=== PATIENT | female | born 1960 | race Caucasian/White ===

== ENCOUNTER 2019-11-25 09:07 | Outpatient (CLI) | payer OTHER, SELFPAY ==
--- NOTE | 2019-11-25 11:00 | NEURO_ITS ---
Patient Number: [id number] Impression: # Complains of numbness in fingers. # No Carpal Tunnel Syndrome or ulnar neuropathy # Normal needle/EMG exam. # Ulnar to median cross innervation noted bilaterally. # Clinical correlation recommended. Nerve Conduction Studies Anti Sensory Summary Table Stim Site NR Peak (ms) P-T Amp (?V) Site1 Site2 Delta-P (ms) Dist (cm) Maximo (m/s) Left Median Anti Sensory (2-3nd Digit) Wrist 3.3 61.9 Wrist 2-3nd Digit 3.3 14.0 42 Wrist 3.2 63.0 Wrist 2-3nd Digit 3.3 14.0 42 Right Median Anti Sensory (2-3nd Digit) Wrist 3.0 37.4 Wrist 2-3nd Digit 3.0 14.0 47 Wrist 2.9 52.3 Wrist 2-3nd Digit 3.0 14.0 47 Left Radial Anti Sensory (Base 1st Digit) Wrist 2.3 29.3 Wrist Base 1st Digit 2.3 0.0 Right Radial Anti Sensory (Base 1st Digit) Wrist 2.7 23.4 Wrist Base 1st Digit 2.7 0.0 Left Ulnar Anti Sensory (5th Digit) Wrist 2.8 76.9 Wrist 5th Digit 2.8 14.0 50 Right Ulnar Anti Sensory (5th Digit) Wrist 2.6 66.7 Wrist 5th Digit 2.6 14.0 54 Motor Summary Table Stim Site NR Onset (ms) O-P Amp (mV) Site1 Site2 Delta-0 (ms) Dist (cm) Maximo (m/s) Left Median Motor (Abd Poll Brev) Wrist 3.5 7.2 Elbow Wrist 4.9 27.0 55 Elbow 8.4 6.9 Right Median Motor (Abd Poll Brev) Wrist 3.0 4.0 Elbow Wrist 4.8 27.0 56 Elbow 7.8 1.4 Left Ulnar Motor (Abd Dig Minimi) Wrist 2.5 5.3 A Elbow Wrist 4.9 28.0 57 A Elbow 7.4 4.2 Right Ulnar Motor (Abd Dig Minimi) Wrist 2.6 6.6 A Elbow Wrist 4.7 27.0 57 A Elbow 7.3 5.4 B Elbow Wrist 0.6 0.0 F Wave Studies NR F-Lat (ms) L-R F-Lat (ms) Left Median (Mrkrs) (Abd Poll Brev) 27.81 1.02 Right Median (Mrkrs) (Abd Poll Brev) 28.83 1.02 Left Ulnar (Mrkrs) (Abd Dig Min) 27.56 0.64 Right Ulnar (Mrkrs) (Abd Dig Min) 28.20 0.64 EMG Side Muscle Nerve Root Ins Act Fibs Amp Dur Recrt Comment Right 1stDorInt Ulnar C8-T1 Nml Nml Nml Nml Nml Right Ext Indicis Radial (Post Int) C7-8 Nml Nml Nml Nml Nml Right Ext Digitorum Radial (Post Int) C7-8 Nml Nml Nml Nml Nml Right BrachioRad Radial C5-6 Nml Nml Nml Nml Nml Right PronatorTeres Median C6-7 Nml Nml Nml Nml Nml Right Abd Poll Brev Median C8-T1 Nml Nml Nml Nml Nml Left 1stDorInt Ulnar C8-T1 Nml Nml Nml Nml Nml Left Ext Indicis Radial (Post Int) C7-8 Nml Nml Nml Nml Nml Left Ext Digitorum Radial (Post Int) C7-8 Nml Nml Nml Nml Nml Left BrachioRad Radial C5-6 Nml Nml Nml Nml Nml Left PronatorTeres Median C6-7 Nml Nml Nml Nml Nml Left Abd Poll Brev Median C8-T1 Nml Nml Nml Nml Nml MTDD
== END 2019-11-25 09:08 | disposition home or self-care (01) ==
LOC: ANHNEURO 09:11
PROVIDERS: PCP Orthopaedic Surgery; Visit Provider Orthopaedic Surgery
DX: M54.2 Cervicalgia (principal)
CPT/HCPCS: 95886; 95911

== ENCOUNTER 2023-07-02 14:50 | Outpatient (CLI) | payer OTHER, SELFPAY ==
--- NOTE | 2023-07-06 20:49 | P.PCNPFT_ITS ---
PFT Procedure Performed PFT Procedure Performed Spirometry with Pre/Post Bronchodilator Plethysmography (Lung Vol) Diffusing Cap (DLCO) Flow Vol Loop PFT Interpretation DOS: 07/02/2023 REQUESTING: Abel Lorenzo APRN REASON FOR TESTING: emphysema PULMONARY FUNCTION TESTS As of July 05, 2022, the [employer] reference equations are used in interpretation of spirometry, lung volumes and diffusing capacity. Race and ethnicity are not included as variables in the interpretation strategy. Results are reliable and reproducible. Spirometry: Pre-bronchodilator FEV1 is 0.93 L, 40% predicted, severely reduced. Pre bronchodilator FVC is 2.17 L, 75% predicted, mildly reduced. The FEV1/FVC r atio is 43%, reduced, consistent with airflow obstruction. After bronchodilator administration, there is a 9% increase in the FEV1, 1.01 L, 44% predicted. There is a 2% increase in the FVC, 2.21 L, 76%, low end of normal. The FEV1/FVC ratio is 46%, reduced. These are non statistically significant increases after bronchodilator. Lung volumes: Total lung capacity is 5.32 L, 113%, normal. FRC is 3.77 L, 142% predicted, mildly elevated. Residual volume is 3.15 L, 166%, moderately elevated. RV/TLC is 59%, increased, consistent with air trapping. Airway resistance is 8.23, 572%, increased. Diffusion: DLCO 7.7, 37%, severely reduced. DLCO/VA is 2.13, 47%, severely reduced. Flow volume loop: Severe coving of the expiratory limb consistent with airflow obstruction. IMPRESSION: Severe obstructive ventilatory impairment without response to bronchodilator, moderate air trapping, severe diffusion impairment. Lack of response to bronchodilator should not preclude use of clinically indicated. No prior studies for comparison. Luz Maria Sheriff MD
--- NOTE | 2023-07-06 20:54 | WPDSIXMINUTE ---
Six Minute Walk Procedure Procedure Performed Pulmonary Stress Test (6 min walk) Six Minute Walk Six Minute Walk: DATE OF SERVICE: 07/02/2023 REQUESTING: Abel Lorenzo APRN REASON FOR TESTING: Emphysema SIX MINUTE WALK This test was conducted per ATS guidelines. The initial saturation was 93%, and initial heart rate was 100. The patient walked without stopping, completing 1100 ft, 335 meters, normal for age. The saturation at the end of testing was 92%, and the heart rate was 114 beats per minute. IMPRESSION: This is a normal study. The patient did not require supplemental oxygen with exertion. The patient was tachycardic throughout the study which is not normal. Highest pulse was 123 beats per minute. Luz Maria Sheriff MD
== END 2023-07-02 14:51 | disposition home or self-care (01) ==
PROVIDERS: PCP Internal Medicine; Visit Provider Nurse Practitioner Family
DX: R06.09 Other forms of dyspnea (principal); J43.9 Emphysema, unspecified
CPT/HCPCS: 94060; 94618; 94726; 94729

== ENCOUNTER 2024-02-27 12:45 | Outpatient (CLI) | payer OTHER, SELFPAY ==
[2024-02-27 13:00] VITALS: PULSE 83; O2SAT 96
[2024-02-27 13:05] VITALS: PULSE 104; O2SAT 96
[2024-02-27 13:15] VITALS: PULSE 88; O2SAT 96
--- NOTE | 2024-02-27 13:45 | HOMEO2EVAL ---
Evaluation was performed at [facility] Home Oxygen Evaluation RC: Home Oxygen (O2) Evaluation Start: 02/27/24 13:43 Freq: Status: Active Protocol: RPE Activity Type Activity Date Activity User E-sign Co-sign Detail Recorded Client Recorded Date Recorded By Document 02/27/24 13:00 [place] [email or web address] 02/27/24 13:45 [place] Document 02/27/24 13:05 [place] [email or web address] 02/27/24 13:45 [place] Document 02/27/24 13:15 [place] [email or web address] 02/27/24 13:45 [place] 02/27/24 02/27/24 02/27/24 13:00 13:05 13:15 Home O2 Evaluation [Oxygen] -Test Phase Resting Exercise Resting -Oxygen Delivery Room Air Room Air Room Air [Pulse Oximetry] -Pulse Oximetry (90-100 %) 96 96 96 [Pulse Rate] -Pulse Rate (60-100 beats/min) 83 104 H 88 [Evaluation] -Activity Tolerance Excellent [Exercise] -Ambulation Distance (feet) 900 -Ambulation Distance (meters) 274.30 [Comments] -Home Oxygen Evaluation Comments Pt walked 900 feet in 6 minutes on room air [Charges] -Evaluation Charges O2 Evaluation by Pulmonary
== END 2024-02-27 12:46 | disposition home or self-care (01) ==
LOC: ANHPFT 12:47
PROVIDERS: PCP Internal Medicine; Visit Provider Physician Assistant
DX: J44.9 Chronic obstructive pulmonary disease, unspecified (principal)
CPT/HCPCS: 94618

== ENCOUNTER 2024-07-16 20:03 | Emergency (ER) | payer OTHER, SELFPAY ==
[2024-07-16] VITALS (34 sets, daily range): BP systolic 95–130; BP diastolic 69–88; PULSE 107–137; RESP 14–28; TEMP 36.4; O2SAT 91–98
--- NOTE | ~2024-07-16 | XR_ITS ---
XR chest 1V portable Ordering provider: Gaetano De Santiago MD History: 64 years Female with . SOB . Comparison: None. FINDINGS: MEDIASTINUM: The cardiac silhouette is not enlarged. LUNGS: No infiltrates, effusions or pneumothorax. 9 mm opacity Seen in the right upper lobe laterally is seen which may indicate a nodule or granuloma. 3 months follow-up advised. OTHER: No free air under the diaphragm. IMPRESSION: No acute cardiopulmonary pathology. Possible nodule or granuloma in the right upper lobe. 3 months follow-up advised. Reviewed, dictated and finalized at location A. IMPRESSION: No acute cardiopulmonary pathology. Possible nodule or granuloma in the right upper lobe. 3 months follow-up advismatty zhang
--- NOTE | 2024-07-16 20:17 | ECG_ITS ---
Test Date: 2024-07-16 20:15:04 Measurements Intervals [place] Rate: 131 P: 67 RI: 116 QRS: 11 QRSD: 82 T: 80 QT: 380 QTc: 561 Interpretive Statements SINUS TACHYCARDIA WITH SHORT RI INTERVAL LOW QRS VOLTAGE - DIFFUSE LEADS BORDERLINE ST-T WAVE ABNORMALITY- LAT/HIGH LAT LEADS BASELINE ARTIFACT- I, III, AVR, AVL,A VF, V1-V6 ABNORMAL ECG No previous ECG available for comparison Electronically Signed On 07-17-2024 08:19:07 CDT by James Carmona D.O.
--- OUTSIDE RECORDS SUMMARY | 2024-07-16 20:23 | XMS_ITS | CONTINUITY OF CARE DOCUMENT ---
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 Name Role Phone Madelin Celis MD Unavailable RHETT MARTINEZ MD Unavailable [phone] RHETT MARTINEZ MD Unavailable PROBLEMS Condition Status Date Provider Notes Cardiology examination active Madelin molina MD Palpitations active Madelin Celis MD Shortness of breath active Madelin Celis MD COPD active Madelin Celis MD Snoring active Madelin Celis MD Aortic regurgitation active Madelin stapleton MD PAD - RLE with ulcer active Madelin stapleton MD Tobacco abuse- hx of active Madelin stapleton MD Leg pain, bilateral active Madelin Celis MD Overweight active Madelin Celis MD Chest pain-type to be determined active Tommy Celis MD SARS-associated coronavirus active Madelin Celis MD Cardiology examination active Madelin molina MD Pericardial effusion active Madelin stapleton MD Mitral regurgitation active Madelin stapleton MD FATIGUE active Madelin Celis MD ENCOUNTERS Date Type Provider Location Encounter Diag nosis 7 - 1 In-person encounter Office Visit Madelin Celis MD [facility] FATIGUE 9 - 1 In-person encounter Office Visit Madelin Celis MD [facility] Mitral regurgitation 8 - 0 In-person encounter Office Visit Madelin Celis MD [facility] Pericardial effusion 8 - 1 In-person encounter Office Visit Madelin Celis MD [facility] Cardiology examination 9 - 9 In-person encounter Office Visit Madelin Celis MD [facility] 7 - 7 In-person encounter Office Visit Madelin Celis MD [facility] Office SARS-associated coronavirus 4 - 9 In-person encounter Office Visit Madelin Celsi MD [facility] 7 - 7 In-person encounter Office Visit Madelin Celis MD [facility] 1 - 7 In-person encounter Office Visit Madelin Celis MD [facility] 5 - 9 In-person encounter Office Visit Madelin Celis MD [facility] Chest pain-type to be determined 2 - 3 In-person encounter Office Visit Madelin Celis MD [facility] Leg pain, bilateralOverweight 9 - 3 In-person encounter Office Visit Madelin Celis MD [facility] 7 - 7 In-person encounter Office Visit Quentin Mims MD [facility] 2 - 1 In-person encounter Office Visit Madelin Celis MD [facility] Aortic regurgitationPAD - RLE with ulcerTobacco abuse- hx of 3 - 3 In-person encounter Office Visit Madelin Celis MD [facility] Cardiology examinationPalpitationsShortness of breathCOPDSnoring VITAL SIGNS Date Observation Value Provider Body Mass Index (Ratio) 23.99 kg/m2 Inna Celis MD pulse rate 95 /min Charlene Lopez RN oxygen saturation, oximetry 97 % Charlene Lopez RN weight E&M 127 [lb_av] Charlene Lopez RN blood pressure, diastolic 74 mm[Hg] Brad sutherland John RN blood pressure, systolic 91 mm[Hg] Charlene John MORROW Body Mass Index (Ratio) 23.80 kg/m2 Inna Celis MD blood pressure, diastolic 66 mm[Hg] Lois sharri Lopez blood pressure, systolic 100 mm[Hg] Kate pieter Lopez weight E&M 126 [lb_av] Suhapieter Lopez blood pressure, cuff size large An sharri Lopez height E&M 61 [in_i] Suha John Body Mass Index (Ratio) 23.62 kg/m2 Inna Celis MD blood pressure, diastolic 76 mm[Hg] Lois sharri Lopez blood pressure, systolic 90 mm[Hg] Any pieter Lopez oxygen saturation, oximetry 96 % Suha Lopez pulse rate 113 /min Suhapieter Lopez weight E&M 125 [lb_av] Suhapieter Lopez height E&M 61 [in_i] Suha John blood pressure, cuff size large An sharri Lopez Body Mass Index (Ratio) 22.67 kg/m2 Inna Celis MD blood pressure, cuff size regular Ri john Montes blood pressure, diastolic 86 mm[Hg] Ri john Montes blood pressure, systolic 140 mm[Hg] Clint parul Montes oxygen saturation, oximetry 97 % Virgie Montes respiratory rate E&M 16 /min Allison Montes pulse rate 70 /min Virgie monteiro weight E&M 120 [lb_av] Virgie monteiro height E&M 61 [in_i] Virgie monteiro Body Mass Index (Ratio) 23.99 kg/m2 Tung Mosleyn blood pressure, cuff size regular Sandra lopez Quiros blood pressure, diastolic 76 mm[Hg] Sandra lopez [place] blood pressure, systolic 125 mm[Hg] Luis Carlos teran [place] oxygen saturation, oximetry 97 % Nette Quiros pulse rate 79 /min Nette Mejia michaelle respiratory rate E&M 16 /min Yahaira starr Quiros weight E&M 127 [lb_av] Nette oRberto braswell height E&M 61 [in_i] Nette Roberto braswell Body Mass Index (Ratio) 23.99 kg/m2 Inna Celsi MD blood pressure, diastolic 62 mm[Hg] Li nkLogjoy blood pressure, systolic 98 mm[Hg] Jamila kLogjoy blood pressure, cuff size large Tr teodoro Jensen blood pressure, diastolic 62 mm[Hg] Tr teodoro Jensen blood pressure, systolic 98 mm[Hg] Try dennys Jensen oxygen saturation, oximetry 99 % Annalisa Jensen respiratory rate E&M 18 /min Trynett Jensen pulse rate 101 /min Trydennys Jensen weight E&M 127 [lb_av] Trydennys Jensen height E&M 61 [in_i] Trynett Jensen Body Mass Index (Ratio) 24.18 kg/m2 Inna Celis MD oxygen saturation, oximetry 94 % Chastaneta Esteban blood pressure, diastolic 76 mm[Hg] Ch astity Carlito blood pressure, systolic 114 mm[Hg] Irma stity Carlito weight E&M 128 [lb_av] Chastity Carlito pulse rate 95 /min Chastity Carlito respiratory rate E&M 16 /min Chastit y Carlito height E&M 61 [in_i] Chastity Carlito Body Mass Index (Ratio) 24.56 kg/m2 Inna Celis MD blood pressure, diastolic 87 mm[Hg] Fe rob Tam blood pressure, systolic 140 mm[Hg] Fel icia Tam pulse rate 92 /min Natalia Tam oxygen saturation, oximetry 97 % Natalia Tam respiratory rate E&M 16 /min Natalia Tam temperature E&M 97.2 [degF] Natalia Tam weight E&M 130 [lb_av] Natalia Tam height E&M 61 [in_i] Natalia Tam Body Mass Index (Ratio) 27.77 kg/m2 Inna Celis MD blood pressure, cuff size regular Ke rri Gruenenfelder blood pressure, diastolic 90 mm[Hg] Ke rri Gruenenfelder blood pressure, systolic 142 mm[Hg] Belle ri Manavnenfmasooder oxygen saturation, oximetry 96 % Shani Gruenenfelder respiratory rate E&M 16 /min Shani G ruenenfelder pulse rate 103 /min Shani Gruenenfe lder weight E&M 147 [lb_av] Shani Gruenenfe lder height E&M 61 [in_i] Shani Gruenenfe lder Body Mass Index (Ratio) 27.02 kg/m2 Inna Celis MD blood pressure, diastolic 84 mm[Hg] To [facility] blood pressure, systolic 117 mm[Hg] [facility] oxygen saturation, oximetry 97 % [facility] respiratory rate E&M 16 /min [facility] pulse rate 85 /min [facility] weight E&M 143 [lb_av] [facility] height E&M 61 [in_i] [facility] Body Mass Index (Ratio) 26.64 kg/m2 Inna Celis MD blood pressure, diastolic 94 mm[Hg] [facility], systolic 132 mm[Hg] [facility] oxygen saturation, oximetry 96 % [facility] respiratory rate E&M 16 /min [facility] pulse rate 102 /min [facility] weight E&M 141 [lb_av] [facility] height E&M 61 [in_i] [facility] temperature site temporal [facility] temperature E&M 97.3 [degF] Sheryl Tanks rhianna Body Mass Index (Ratio) 25.69 kg/m2 Christopher Chavarria blood pressure, cuff size regular Cy ntgeorge Robertson blood pressure, diastolic 70 mm[Hg] Cy ntgeorge Robertson blood pressure, systolic 116 mm[Hg] Renetta jie Robertson oxygen saturation, oximetry 97 % Mehnaz Robertson pulse rate 100 /min Mehnaz Campbel l respiratory rate E&M 16 /min Mehnaz Robertson weight E&M 136 [lb_av] Mehnaz Campbel l height E&M 61 [in_i] Mehnaz Campbel l Body Mass Index (Ratio) 26.64 kg/m2 Nacho Mims MD blood pressure, cuff size regular Cy nthia Robertson blood pressure, diastolic 70 mm[Hg] Luís Robertson blood pressure, systolic 110 mm[Hg] Renetta Robertson oxygen saturation, oximetry 97 % Mehnaz Robertson respiratory rate E&M 16 /min Mehnaz Robertson pulse rate 110 /min Mehnaz weldon weight E&M 141 [lb_av] Mehnaz weldon height E&M 61 [in_i] Mehnaz weldon Body Mass Index (Ratio) 25.88 kg/m2 Inna Celis MD blood pressure, cuff size regular Cy michelle Robertson blood pressure, diastolic 80 mm[Hg] Luís Robertson blood pressure, systolic 124 mm[Hg] Renetta Robertson oxygen saturation, oximetry 94 % Mehnaz Robertson respiratory rate E&M 16 /min Mehnaz Robertson pulse rate 103 /min Mehnaz weldon weight E&M 137 [lb_av] Mehnaz weldon height E&M 61 [in_i] Mehnaz weldon Body Mass Index (Ratio) 25.51 kg/m2 Inna Celis MD blood pressure, resting No Celio tity Carlito oxygen saturation, oximetry 98 % Irmastity Carlito height E&M 61 [in_i] Chastity Carlito pulse rate 91 /min Chastity Carlito blood pressure, diastolic 78 mm[Hg] Ch astity Carlito blood pressure, systolic 120 mm[Hg] Irma stity Carlito respiratory rate E&M 16 /min Chastit y Carlito weight E&M 135 [lb_av] Chastity Carlito ALLERGIES No Known Drug Allergies HISTORY OF MEDICATION USE Medication Status Instructions Dates Provider Indications Com ments Lipitor 20 mg tablet active TAKE 1 TABLET EVERY DAY Madelin Celis MD nicotine 7 mg/24 hr patch 24 hour active USE DIRECTED, ONE DAILY Britta Pérez Nicoderm CQ 7 mg/24 hr patch 24 hour completed Apply 1 patch to skin every morning Use as directed, one daily - Madelin Celis MD metoprolol succinate 25 mg tablet extended release 24 hr active TAKE 1 TABLET BY MOUTH TWICE A DAY Nighat Cortez Scarm CQ 7 mg/24 hr patch 24 hour completed Use as directed, one daily - Madelin Celis MD nicotine 21 mg/24 hr patch 24 hour active Apply 1 patch once a day as directed Shani Ragland #28, 28 days supply, Prescribed by RHETT MARTINEZ, Filled 01/03/2020 Symbicort 80-4.5 mcg/actuation HFA aerosol inhaler active Inhale 2 puff by mouth twice a day Shani Ragland #10.2, 30 days supply, Prescribed by RHETT MARTINEZ, Filled 01/13/2020 topiramate 25 mg tablet completed Take 1 tablet by mouth once a day - Mavis Ventimiglia [employer]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, 30 days supply, Prescribed by RHETT MARTINEZ, Filled 01/17/2020 omeprazole 40 mg capsule,delayed release(DR/EC) active Take 1 capsule by mouth every morning Shani Ragland #30, 30 days supply, Prescribed by RHETT MARTINEZ, Filled 01/17/2020 hydroxyzine HCl 25 mg tablet active Take 1 tablet by mouth twice a day as needed Shani Ragland #60, 30 days supply, Prescribed by RHETT MARTINEZ, Filled 01/17/2020 lutein 20 mg capsule active 1 tablet by mouth once a day Irmastaneta Esteban cyclobenzaprine 5 mg tablet active tablet by mouth as needed Chastity Carlito Ventolin HFA 90 mcg/actuation HFA aerosol inhaler active as needed Chastity Carlito #18, 25 days supply, Prescribed by AVEL WOODS, Filled 04/14/2018 olanzapine 10 mg tablet active 1 tablet by mouth twice a day Chastity Carlito #60, 30 days supply, Prescribed by STEFANO VARNER, Filled 06/24/2018 lithium carbonate 300 mg capsule active 1 tablet by mouth twice a day Chastity Carlito #60, 30 days supply, Prescribed by STEFANO VARNER, Filled 06/24/2018 QUETIAPINE FUMARATE 100 MG ORAL TABLET completed one tab once daily - Shani Emcasier #30, 30 days supply, Prescribed by STEFANO VARNER, Filled 06/24/2018 fluticasone propion-salmetero l active 1 puff twice a day Chastity Carlito #1, 30 days supply, Prescribed by STEVE CALLAWAY, Filled 06/27/2018 SOCIAL HISTORY Date Observation Value Provider drug use no Madelin stapleton MD alcohol use no Madelin stapleton MD smoking/tobacco cess ation, patient education and counseling yes Madelin Celis MD number of years as a smoker 41 a Madelin Celis MD smoking history, tot al pack/day 7 Madelin Celis MD cigarette use yes Madelin saxena MD smoking status Current every da y smoker Madelin Celis MD drug use no Suha Lopez alcohol use no Suha Lopez smoking/tobacco cess ation, patient education and counseling yes Suha Lopez number of years as a smoker 41 a Suha Lopez smoking history, tot al pack/day 7 Suhapieter Lopez cigarette use yes Suha Lopez smoking status Current every da y smoker Suha Lopez social history E&M S moking History: P atjason currently smokes every day. P atjason has been counseled to quit. 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 use no Mavis Ventimig patria [employer]ING TEACHER smoking/tobacco cess ation, patient education and counseling yes Virgie Montes number of years as a smoker 41 a Virgie Montes smoking history, tot al pack/day 7 Virgie Montes cigarette use yes Virgie Gray jeaneth smoking status Current every da y smoker Virgie Montes social history reviewed E&M revi ewed - no changes required Shaye Gleason NP smoking/tobacco cess ation, patient education and counseling yes Nette Duarteand number of years as a smoker 41 a Nette Quiros smoking history, tot al pack/day 7 Nette Ishaan cigarette use yes Nette Ramo robles smoking status Current every da y smoker Nette Duarteand social history E&M S moking History: P atient currently smokes every day. Madelin Celis MD social history reviewed E&M revi ewed - no changes required Madelin Celis MD smoking history, tot al pack/day 7 Annalisa Jensen cigarette use yes Annalisa dacosta smoking status Current every da y smoker Annalisa Jensen smoking/tobacco cess ation, patient education and counseling yes Maddy Esteban number of years as a smoker 41 a Maddy Esteban smoking history, tot al pack/day 1 Maddy Esteban cigarette use yes Maddy Esteban smoking status Current every da y smoker Maddy Esteban social history E&M S moking History: P atient currently smokes every day. P atient has been counseled to quit. Madelin Celis MD social history reviewed E&M revi ewed - no changes required Madelin Celis MD smoking/tobacco cess ation, patient education and counseling yes Natalia Tam number of years as a smoker 41 a Natalia Tam smoking history, tot al pack/day 1 Natalia Tam cigarette use yes Natalia Tam smoking status Current every da y smoker Natalia Tam social history E&M S moking History: P atient currently smokes every day. P atient has been counseled to quit. Madelin Celis MD social history reviewed E&M revi ewed - no changes required Madelin Celis MD smoking/tobacco cess ation, patient education and counseling yes Shani Ragland number of years as a smoker 41 a Shani Ellyn smoking history, tot al pack/day 1 Shani Ragland cigarette use yes Shani jose smoking status Current every da y smoker Shani Ragland smoking/tobacco cess ation, patient education and counseling yes Madelin Celis MD smoking status Current every da y smoker Madelin Celis MD social history reviewed E&M revi ewed - no changes required Madelin Celis MD social history E&M S moking History: P atient currently smokes every day. P atient has been counseled to quit. Madelin Celis MD number [facility] a [facility]day 1 [facility] cigarette use yes [facility] social history E&M S moking History: P atient currently smokes every day. P atient has been counseled to quit. Ventura Suárez social history reviewed E&M revi ewed - no changes required Ventura Kamini smoking history, tot al pack/day 1 [facility] smoking/tobacco cess ation, patient education and counseling yes [facility] number of years as a smoker 41 a [facility] cigarette use yes [facility] smoking status Current every da y smoker [facility] social history E&M S moking History: P atient currently smokes every day. P atient has been counseled to quit. Madelin Celis MD social history reviewed E&M revi ewed - no changes required Madelin Celis MD number of grandchildren Madelin Celis MD smoking/tobacco cess ation, patient education and counseling yes Mehnaz Robertson number of years as a smoker 41 a Mehnaz Robertson cigarette use yes Mehnaz harper smoking status Current every da y smoker Mehnaz Robertson number of grandchildren Quentin Mims MD U devorah Mims MD social history E&M S moking History: P atient currently smokes every day. P atient has been counseled to quit. Quentin Mims MD social history reviewed E&M revi ewed - no changes required Quentin Mims MD smoking/tobacco cess ation, patient education and counseling yes Mehnaz Robertson number of years as a smoker 41 a Mehnaz Robertson cigarette use yes Mehnaz harper smoking status Current every da y smoker Mehnaz Robertson social history E&M S moking History: P ramin currently smokes every day. P atjason has been counseled to quit. Madelin Celis MD social history reviewed E&M revi ewed - no changes required Madelin Celis MD smoking/tobacco cess ation, patient education and counseling yes Mehnaz Robertson number of years as a smoker 41 a Mehnaz Robertson cigarette use yes Mehnaz Benitez meredith smoking status Current every da y smoker Mehnaz Marcelo number of grandchildren Madelin Celis MD smoking/tobacco cess ation, patient education and counseling yes Madelin Celis MD social history reviewed E&M revi ewed - no changes required Madelin Celis MD social history E&M S moking History: P ramin currently smokes every day. P ramin has been counseled to quit. Madelin Celis MD number of years as a smoker 41 a Maddy Esteban cigarette use yes Maddy Esteban smoking status Current every da y smoker Maddy Esteban FAMILY HISTORY Family Member Condition First Degree Blood Relative No Known Fam sachi History INSURANCE PROVIDERS Payer name Policy type / Coverage type [place] red libertarian ID HERNANDEZ MEDICAID Medicaid [id number] ADVANCE DIRECTIVES Name Date DISCUSSED - NO DECISION MADE TREATMENT PLAN Date Name Performer [id number],S, E mphysema noted on CT. Madelin Celis MD [id number],C, H as healed up. S ensilase 01/20/19: M ildly abnormal PVR's b/l with adequate perfusion for wound healing November 23, 2022 H as healed. Madelin Celis MD [id number],C,S mall pericardial effusion noted on CT scan, will get an echo. Madelin Celis MD [id number],C, R estarted smoking. Madelin Celis MD [id number],C, t race on last echo. Will monitor Madelin Celis MD [id number],S,w ill plan low dose screening CT of the lungs O rders: 9 9214 MOD 30-39min (CPT-03539) L ow Dose Lung CT (CPT-G0297) C ounseling LDCT (CPT-G0296) [facility] [id number],S,trace on last echo. Will monitor [facility] [id number],C, H as healed up. S ensilase 01/20/19: M ildly abnormal PVR's b/l with adequate perfusion for wound healing [facility] [id number],C,with negative sleep studies [facility] [id number],S,c ontrolled. Continue BB. Encouraged stress reduction, exercise and avoidance of caffeine H er updated medication list for this problem includes: Toprol Xl 25 Mg Tablet Extended Release 24 Hr (Metoprolol succinate) ..... Take 1 tablet by mouth twice a [facility] [id number],C,T race MR, Trace AR and Trace TR noted on echo 01/2021 Shaye Packvane [id number],C,no complaints Shaye Gleason [id number],C,N o further complaints T issa monitor was SR Her updated medication list for this problem includes: Toprol Xl 25 Mg Tablet Extended Release 24 Hr (Metoprolol succinate) ..... Take 1 tablet by mouth twice a day Shayeryan Gleason [id number],C,4 cigarettes a day. W ill arrange for low dose CT chest Shayeryan Gleason [id number],C, H as healed up. S ensilase 01/20/19: M ildly abnormal PVR's b/l with adequate perfusion for wound healing Shaye Gleason ENROLLMENT COORDINATOR [id number],C,W as on weight loss medication, has lost 20+lbs and stopped medication Shaye Gleason ENROLLMENT COORDINATOR [id number],C, R elated to continued cigarette and marijuana use. April 14, 2021 h as cut back on marijuana use Madelin Celis MD [id number],B, Madelin robison MD [id number],C,Tele monitor was SR Madelin Celis MD [id number],C, E cho 07/02/2019 CONCLUSIONS: 1 . Technically difficult study, limited views secondary to poor acoustic windows; breast implants. Interpretation is based on a vailable limited views. Normal left ventricular systolic function. Normal left ventricular size. Normal left ventricular wall t hickness. There is E to A wave reversal consistent with impaired LV relaxation. E/E': 7.6. Left ventricular ejection fraction is m easured at 65 %. 2 . Normal right ventricular size. Normal right ventricular systolic function. 3 . Normal appearing mitral valve leaflets. There is trace physiologic mitral valve regurgitation. 4 . Mild aortic valve regurgitation. 5 . There is trace physiologic tricuspid valve regurgitation. VALVULAR FUNCTION IMPROVED, LESS REGURG NOTED April 14, 2021 E cho was done C ONCLUSIONS: 1 . Normal left ventricular systolic function. Normal left ventricular size. Normal left ventricular wall thickness. Normal left v entricular diastolic function. E/E': 7.7. Left ventricular ejection fraction is measured at 60 %. 2 . Normal right ventricular size. Normal right ventricular systolic function. 3. There is trace physiologic mitral valve regurgitation. 4 . There is trace physiologic aortic valve regurgitation. 5 . There is trace physiologic tricuspid valve regurgitation E lectronically signed by Madelin Celis MD on 01/24/2021 at 1:41 PM Madelin Celis MD [id number],C, H ome sleep study negative for LEVI. Madelin Celis MD [id number],C, H as healed up. S ensilase 01/20/19: M ildly abnormal PVR's b/l with adequate perfusion for wound healing Madelin Celis MD [id number],C,Vaccinated J& J Madelin Celis MD [id number],C, T akes inhaler N egative LEVI workup. Pulmonary Function Diagnosis: M oderately severe Obstructive Airways Disease M oderately severe Diffusion Defect. U ses inhaler. May be exposed to second hand smoke. Needs to see engineering drafter. Madelin Celis MD [id number],C,1 /2 ppday T he Patient was reencouraged to stop smoking. Madelin Celis MD [id number],C, a dd toprol xl 25 mg daily still noteices will get tele montior and increase to 50mg daily if tolerated Her updated medication list for this problem includes: Toprol Xl 25 Mg Oral Tablet Extended Release 24 Hour (Metoprolol succinate) ..... One tab daily Madelin Celis MD [id number],C, R elated to continued cigarette and marijuana use. Madelin Celis MD [id number],C, H aving episode of SSCP, unclear, doubt ACS. No EKG changes noted. Prior stress w/out ischemia. Normal LV function. Recommend follow up in 2 weeks. If she has recurrent Sx, will recommend cath. S bob 1 . Normal myocardial perfusion imaging after vasodilator stress with Regadenoson. 2 . Normal left ventricular systolic function with a calculated ejection fraction of 51%. 3 . No obvious significant scintigraphic evidence of myocardial ischemia or scar. 4 . Breast attenuation reviewed. No significant impact on images noted. . ................................................... ...............Madelin Celis MD August 20, 2018 5:52 PM Madelin Celis MD [id number],Gautam Mckeon 07/02/2019 CONCLUSIONS: 1 . Technically difficult study, limited views secondary to poor acoustic windows; breast implants. Interpretation is based on a vailable limited views. Normal left ventricular systolic function. Normal left ventricular size. Normal left ventricular wall t hickness. There is E to A wave reversal consistent with impaired LV relaxation. E/E': 7.6. Left ventricular ejection fraction is m easured at 65 %. 2 . Normal right ventricular size. Normal right ventricular systolic function. 3 . Normal appearing mitral valve leaflets. There is trace physiologic mitral valve regurgitation. 4 . Mild aortic valve regurgitation. 5 . There is trace physiologic tricuspid valve regurgitation. VALVULAR FUNCTION IMPROVED, LESS REGURG NOTED Madelin Celis MD Cardiology: L ikely arthritic from her description w ill get arterial study done to eval legs for PAD Maedlin Celis MD Cardiology: C ONCLUSIONS: 1 . Technically difficult study, limited views secondary to poor acoustic windows and breast implants. Interpretation is based o n available limited views. Normal left ventricular systolic function. Normal left ventricular size. Normal left ventricular wall t hickness. There is E to A wave reversal consistent with impaired LV relaxation. E/E': 8.0 Left ventricular ejection fraction is m easured at 60 %. 2 . Normal right ventricular size. Normal right ventricular systolic function. 3 . Normal appearing mitral valve leaflets. Mild mitral valve regurgitation. 4 . The aortic valve is not well visualized. Velocities, as well as gradients across the aortic valve are normal. Mild to moderate a ortic valve regurgitation. Madelin Celis MD Cardiology: w ith negative sleep studies Madelin Celis MD Cardiology:needs to get stress P atient has history of PVD w/ carotid dissease and she is having worsening symptoms of chest pain or shortness of breath, BM<35, and is unable to exercise on treadmill long enough to achieve target heartrate. I am ordering a Stress PET-CT to further evaluate since she has bilateral breast immplants w attenuation artifacts affecting SPECT reads benefit will be there from having PET CT instead Madelin Celis MD Cardiology: H er updated medication list for this problem includes: Toprol Xl 25 Mg Tablet Extended Release 24 Hr (Metoprolol succinate) ..... Take 1 tablet by mouth twice a day Madelin Celis MD Cardiology: R estarted smoking. The Patient was reencouraged to stop smoking. Madelin Celis MD Cardiology: E mphysema noted on CT. Madelin Celis MD Cardiology: C ONCLUSIONS: 1 . Technically difficult study, limited views secondary to poor acoustic windows and breast implants. Interpretation is based o n available limited views. Normal left ventricular systolic function. Normal left ventricular size. Normal left ventricular wall t hickness. There is E to A wave reversal consistent with impaired LV relaxation. E/E': 8.0 Left ventricular ejection fraction is m easured at 60 %. 2 . Normal right ventricular size. Normal right ventricular systolic function. 3 . Normal appearing mitral valve leaflets. Mild mitral valve regurgitation. 4 . The aortic valve is not well visualized. Velocities, as well as gradients across the aortic valve are normal. Mild to moderate a ortic valve regurgitation. Madelin Celis MD Cardiology: R estarted smoking. The Patient was reencouraged to stop smoking. Madelin Celis MD Cardiology: H aving episode of SSCP, unclear, doubt ACS. No EKG changes noted. Prior stress w/out ischemia. Normal LV function. Recommend follow up in 2 weeks. If she has recurrent Sx, will recommend cath. S bob 1 . Normal myocardial perfusion imaging after vasodilator stress with Regadenoson. 2 . Normal left ventricular systolic function with a calculated ejection fraction of 51%. 3 . No obvious significant scintigraphic evidence of myocardial ischemia or scar. 4 . Breast attenuation reviewed. No significant impact on images noted. . ................................................... ...............Madelin Celis MD August 20, 2018 5:52 PM July 05, 2023 n o new sxs Madelin Celis MD Cardiology: H as healed up. S ensilase 01/20/19: M ildly abnormal PVR's b/l with adequate perfusion for wound healing November 23, 2022 H as healed. Madeiln Celis MD Cardiology: c ontrolled. Continue BB. Encouraged stress reduction, exercise and avoidance of caffeine H er updated medication list for this problem includes: Toprol Xl 25 Mg Tablet Extended Release 24 Hr (Metoprolol succinate) ..... Take 1 tablet by mouth twice a day Madelin Celis MD Cardiology:CONCLUSIO NS: 1 . Technically difficult study, limited views secondary to poor acoustic windows and breast implants. Interpretation is based o n available limited views. Normal left ventricular systolic function. Normal left ventricular size. Normal left ventricular wall t hickness. There is E to A wave reversal consistent with impaired LV relaxation. E/E': 8.0 Left ventricular ejection fraction is m easured at 60 %. 2 . Normal right ventricular size. Normal right ventricular systolic function. 3 . Normal appearing mitral valve leaflets. Mild mitral valve regurgitation. 4 . The aortic valve is not well visualized. Velocities, as well as gradients across the aortic valve are normal. Mild to moderate a ortic valve regurgitation. Madelin Celis MD Cardiology:CONCLUSIO NS: 1 . Technically difficult study, limited views secondary to poor acoustic windows and breast implants. Interpretation is based o n available limited views. Normal left ventricular systolic function. Normal left ventricular size. Normal left ventricular wall t hickness. There is E to A wave reversal consistent with impaired LV relaxation. E/E': 8.0 Left ventricular ejection fraction is m easured at 60 %. 2 . Normal right ventricular size. Normal right ventricular systolic function. 3 . Normal appearing mitral valve leaflets. Mild mitral valve regurgitation. 4 . The aortic valve is not well visualized. Velocities, as well as gradients across the aortic valve are normal. Mild to moderate a ortic valve regurgitation. Madelin Celis MD Cardiology: E mphysema noted on CT. Madelin Celis MD Cardiology: H as healed up. S ensilase 01/20/19: M ildly abnormal PVR's b/l with adequate perfusion for wound healing November 23, 2022 H as healed. Madelin Celis MD Cardiology:Small per icardial effusion noted on CT scan, will get an echo. Madelin Celis MD Cardiology: R estarted smoking. Madelin Celis MD Cardiology: t race on last echo. Will monitor Madelin Celis MD Cardiology:will plan low dose screening CT of the lungs O rders: 9 [id number] MOD 30-39min (CPT-74610) L ow Dose Lung CT (CPT-G0297) C ounseling LDCT (CPT-G0296) [facility] Cardiology:trace on last echo. W ill monitor [facility] Cardiology: H as healed up. S ensilase 01/20/19: M ildly abnormal PVR's b/l with adequate perfusion for wound healing [facility] Cardiology:with negative sleep s tudies [facility] Cardiology:controlle d. Continue BB. Encouraged stress reduction, exercise and avoidance of caffeine H er updated medication list for this problem includes: Toprol Xl 25 Mg Tablet Extended Release 24 Hr (Metoprolol succinate) ..... Take 1 tablet by mouth twice a day [place] Ana Lilia [facility] Cardiology-seen with ENROLLMENT COORDINATOR:Trace MR, Trace AR and Trace TR noted on echo 01/2021 Shaye Gleason ENROLLMENT COORDINATOR Cardiology-seen with ENROLLMENT COORDINATOR:no compl aints Shaye Gleason NP Cardiology-seen with ENROLLMENT COORDINATOR:No further complaints T issa monitor was SR Her updated medication list for this problem includes: Toprol Xl 25 Mg Tablet Extended Release 24 Hr (Metoprolol succinate) ..... Take 1 tablet by mouth twice a day Shaye Gleason NP Cardiology-seen with ENROLLMENT COORDINATOR:4 cigarettes a day. W ill arrange for low dose CT chest Shaye Gleason NP Cardiology-seen with ENROLLMENT COORDINATOR: H as healed up. S ensilase 01/20/19: M ildly abnormal PVR's b/l with adequate perfusion for wound healing Shaye Gleason NP Cardiology-seen with ENROLLMENT COORDINATOR:Was on weight loss medication, has lost 20+lbs and stopped medication Shaye Gleason [facility] Cardiology: R elated to continued cigarette and marijuana use. April 14, 2021 h as cut back on marijuana use Madelin Celis MD Cardiology Madelin Celis MD Cardiology:Tele monitor was SR Kamaljit Celis MD Cardiology: E cho 07/02/2019 CONCLUSIONS: 1 . Technically difficult study, limited views secondary to poor acoustic windows; breast implants. Interpretation is based on a vailable limited views. Normal left ventricular systolic function. Normal left ventricular size. Normal left ventricular wall t hickness. There is E to A wave reversal consistent with impaired LV relaxation. E/E': 7.6. Left ventricular ejection fraction is m easured at 65 %. 2 . Normal right ventricular size. Normal right ventricular systolic function. 3 . Normal appearing mitral valve leaflets. There is trace physiologic mitral valve regurgitation. 4 . Mild aortic valve regurgitation. 5 . There is trace physiologic tricuspid valve regurgitation. VALVULAR FUNCTION IMPROVED, LESS REGURG NOTED April 14, 2021 E cho was done C ONCLUSIONS: 1 . Normal left ventricular systolic function. Normal left ventricular size. Normal left ventricular wall thickness. Normal left v entricular diastolic function. E/E': 7.7. Left ventricular ejection fraction is measured at 60 %. 2 . Normal right ventricular size. Normal right ventricular systolic function. 3 . There is trace physiologic mitral valve regurgitation. 4 . There is trace physiologic aortic valve regurgitation. 5 . There is trace physiologic tricuspid valve regurgitation E lectronically signed by Madelin Celis MD on 01/24/2021 at 1:41 PM Madelin Celis MD Cardiology: H ome sleep study negative for LEVI. Madelin Celis MD Cardiology: H as healed up. S ensilase 01/20/19: M ildly abnormal PVR's b/l with adequate perfusion for wound healing Madelin Celis MD Cardiology:Vaccinated [employer] Collin Celis MD Cardiology: T akes inhaler N egative LEVI workup. Pulmonary Function Diagnosis: M oderately severe Obstructive Airways Disease M oderately severe Diffusion Defect. U ses inhaler. May be exposed to second hand smoke. Needs to see engineering drafter. Madelin Celis MD Cardiology:1/2 ppday T he Patient was reencouraged to stop smoking. Madelin Celis MD Cardiology: a dd toprol xl 25 mg daily still noteices will get tele montior and increase to 50mg daily if tolerated Her updated medication list for this problem includes: Toprol Xl 25 Mg Oral Tablet Extended Release 24 Hour (Metoprolol succinate) ..... One tab daily Madelin Celis MD Cardiology: R elated to continued cigarette and marijuana use. Madelin Celis MD Cardiology: H aving episode of SSCP, unclear, doubt ACS. No EKG changes noted. Prior stress w/out ischemia. Normal LV function. Recommend follow up in 2 weeks. If she has recurrent Sx, will recommend cath. S bob 1 . Normal myocardial perfusion imaging after vasodilator stress with Regadenoson. 2 . Normal left ventricular systolic function with a calculated ejection fraction of 51%. 3 . No obvious significant scintigraphic evidence of myocardial ischemia or scar. 4 . Breast attenuation reviewed. No significant impact on images noted. . ................................................... ...............Madelin Celis MD August 20, 2018 5:52 PM Madelin Celis MD Cardiology: Gautam garza 07/02/2019 CONCLUSIONS: 1 . Technically difficult study, limited views secondary to poor acoustic windows; breast implants. Interpretation is based on a vailable limited views. Normal left ventricular systolic function. Normal left ventricular size. Normal left ventricular wall t hickness. There is E to A wave reversal consistent with impaired LV relaxation. E/E': 7.6. Left ventricular ejection fraction is m easured at 65 %. 2 . Normal right ventricular size. Normal right ventricular systolic function. 3 . Normal appearing mitral valve leaflets. There is trace physiologic mitral valve regurgitation. 4 . Mild aortic valve regurgitation. 5 . There is trace physiologic tricuspid valve regurgitation. VALVULAR FUNCTION IMPROVED, LESS REGURG NOTED Madelin Celis MD Cardiology: 3 cigarettes per day currently. Madelin Celis MD Cardiology: T akes inhaler N egative LEVI workup. Pulmonary Function Diagnosis: M oderately severe Obstructive Airways Disease M oderately severe Diffusion Defect. U ses inhaler. May be exposed to second hand smoke. Needs to see engineering drafter. Madelin Celis MD Cardiology: E cho 07/02/2019 CONCLUSIONS: 1 . Technically difficult study, limited views secondary to poor acoustic windows; breast implants. Interpretation is based on a vailable limited views. Normal left ventricular systolic function. Normal left ventricular size. Normal left ventricular wall t hickness. There is E to A wave reversal consistent with impaired LV relaxation. E/E': 7.6. Left ventricular ejection fraction is m easured at 65 %. 2 . Normal right ventricular size. Normal right ventricular systolic function. 3 . Normal appearing mitral valve leaflets. There is trace physiologic mitral valve regurgitation. 4 . Mild aortic valve regurgitation. 5 . There is trace physiologic tricuspid valve regurgitation. VALVULAR FUNCTION IMPROVED, LESS REGURG NOTED Madelin Celis MD Cardiology:add toprol xl 25 mg d aily Madelin Celis MD Cardiology: H as healed up. S ensilase 01/20/19: M ildly abnormal PVR's b/l with adequate perfusion for wound healing Madelin Celis MD Cardiology: R elated to continued cigarette and marijuana use. Madelin Celis MD Cardiology Follow up :Takes inhaler N egative LEVI workup. Pulmonary Function Diagnosis: M oderately severe Obstructive Airways Disease M oderately severe Diffusion Defect. U ses inhaler. May be exposed to second hand smoke. Needs to see engineering drafter. Madelin Celis MD Cardiology Follow up : H ome sleep study negative for LEVI. Madelin Celis MD Cardiology Follow up :Echo 07/02/2019 CONCLUSIONS: 1 . Technically difficult study, limited views secondary to poor acoustic windows; breast implants. Interpretation is based on a vailable limited views. Normal left ventricular systolic function. Normal left ventricular size. Normal left ventricular wall t hickness. There is E to A wave reversal consistent with impaired LV relaxation. E/E': 7.6. Left ventricular ejection fraction is m easured at 65 %. 2 . Normal right ventricular size. Normal right ventricular systolic function. 3 . Normal appearing mitral valve leaflets. There is trace physiologic mitral valve regurgitation. 4 . Mild aortic valve regurgitation. 5 . There is trace physiologic tricuspid valve regurgitation. VALVULAR FUNCTION IMPROVED, LESS REGURG NOTED Madelin Celis MD Cardiology Follow up : H as healed up. S ensilase 01/20/19: M ildly abnormal PVR's b/l with adequate perfusion for wound healing Madelin Celis MD Cardiology Follow up : N o odd arrhythmias noted. Madelin Celis MD Cardiology Follow up : R elated to continued cigarette and marijuana use. Madelin Celis MD Cardiology ok to sig n: E cho 08/2018 Conclusions: 1 . Normal left ventricular systolic function. Normal left ventricular wall thickness. There is E to A wave r eversal consistent with impaired LV relaxation. Normal E/E` 7.5. Left ventricular ejection fraction is e stimated at 55 %. 2 . Normal right ventricular size. Normal right ventricular systolic function. 3 . Aortic valve leaflets appear structurally normal. Velocities, as well as gradients across the aortic v alve are normal. Mild aortic valve regurgitation. Madelin Celis MD Cardiology ok to sig n:Negative LEVI workup. Pulmonary Function Diagnosis: M oderately severe Obstructive Airways Disease M oderately severe Diffusion Defect. U ses inhaler. May be exposed to second hand smoke. Needs to see engineering drafter. Madelin Celis MD Cardiology ok to sig n:Having episode of SSCP, unclear, doubt ACS. No EKG changes noted. Prior stress w/out ischemia. Normal LV function. Recommend follow up in 2 weeks. If she has recurrent Sx, will recommend cath. Madelin Celis MD Cardiology ok to sig n:3 cigarettes per day currently. Madelin Celis MD Cardiology:She wants weight loss medication, however she is on lithium and two other depression drugs. Don't know what the interactions with that would be with contrave. As a result, would not readily start contrave. Ventura Suárez Cardiology:Recent ec ho preserved EF with mild valvular disease. Ventura Suárez Cardiology:Likely arthritic from her description Ventura Suárez Cardiology:Related t o continued cigarette and marijuana use. Ventura Suárez Cardiology follow up :If she has recurrent CP she has been instructed to go theER. Will repeat echocardiogram to make sure there is no decline in EF. Madelin Celis MD Cardiology follow up :Has healed up. S ensilase 01/20/19: M ildly abnormal PVR's b/l with adequate perfusion for wound healing Madelin Celis MD Cardiology follow up : N o odd arrhythmias noted. Madelin Celis MD Cardiology follow up Quentin sutherland MD Cardiology follow up :Home sleep study negative for LEVI. Quentin Mims MD Cardiology follow up :Sensilase 01/20/19: M ildly abnormal PVR's b/l with adequate perfusion for wound healing Quentin Mims MD Cardiology follow up :Said she had clipped her toenail. Second toe. Will get sensilase and TRINITY done. Also describes UE cramping. Will need to have arterial testing checked. Madelin Celis MD Cardiology follow up :Had an inconclusive sleep study. Will try again. Madelin Celis MD Cardiology follow up :No odd arr hythmias noted. Madelin Celis MD Cardiology follow up :Nuclear stress: 1 . Normal myocardial perfusion imaging after vasodilator stress with Regadenoson. 2 . Normal left ventricular systolic function with a calculated ejection fraction of 51%. 3 . No obvious significant scintigraphic evidence of myocardial ischemia or scar. 4 . Breast attenuation reviewed. No significant impact on images noted. Madelin Celis MD Cardiology follow up :Echo 08/2018 Conclusions: 1 . Normal left ventricular systolic function. Normal left ventricular wall thickness. There is E to A wave r eversal consistent with impaired LV relaxation. Normal E/E` 7.5. Left ventricular ejection fraction is e stimated at 55 %. 2 . Normal right ventricular size. Normal right ventricular systolic function. 3 . Aortic valve leaflets appear structurally normal. Velocities, as well as gradients across the aortic v alve are normal. Mild aortic valve regurgitation. Madelin Celis MD Cardiology: O rders: S leep Study Home (CPT-58247) Madelin Celis MD Cardiology: C heck PFTs, O2 sat. Madelin Celis MD Cardiology: W ill order 2 week tele. Madelin Celis MD Date Name Arterial Duplex Bi-L ower EX myocardial blood ko w (PET) Stress Cardiac PET-C T Complete Echo LIPID PANEL COMPREHENSIVE METABO LIC PANEL, W/EGFR Carotid Duplex Bilat eral Complete Echo Low Dose Lung CT Low Dose Lung CT Complete Echo Holter Monitor 48 hr EKG Complete Echo Arterial Duplex Bi-L ower EX Arterial Duplex Uppe r Extremity Bilateral Sleep Study Home B TYPE NATRIURETIC P EPTIDE (BNP) LIPID PANEL THYROID PANEL WITH T SH, 3RD GENERATION COMPREHENSIVE METABO LIC PANEL, W/EGFR Sleep Study Home Stress Exercise Card iolite 6 minute walk test Ambulatory Oximetry Complete Echo Mobile Cardiac Tele DLCO - 98991 FRC - 77422 FVC - [id number] HISTORY OF PROCEDURES Procedure Date Procedure Name Provider Procedure Notes S tatus Complex e/m visit add on Madelin Celis MD [01/07/2024 - tremayne] APPROVED completed EKG Madelin Celis MD completed EKG Madelin Celis MD completed Counseling LDCT Madelin Celis MD completed EKG Madelin Celis MD completed Counseling LDCT Madelin Celis MD completed EKG Madelin Celis MD completed EKG Madelin Celis MD completed Holter, 24 or 48 Madelin stapleton MD completed EKG Madelin Celis MD completed EKG Madelin Celis MD completed EKG Madelin Celis MD completed EKG Madelin Celis MD completed EKG Madelin Celis MD completed EKG Quentin Mims MD completed EKG Madelin Celis MD completed Cardiolite, 2 units Madelin robison MD completed SPECT Images Madelin Celis MD completed Stress EKG Raad Centeno MD completed Event Monitor Madelin Celis MD completed FVC / MVV with bronchodilator and 6min walk/titration Madelin Celis MD completed BLOOD COUNT HEMOGLOBIN Madelin Celis MD completed FRC - [id number] Madelin Celis MD completed DLCO - [id number] Madelin Celis MD completed EKG Madelin Celis MD completed
--- OUTSIDE RECORDS SUMMARY | 2024-07-16 20:23 | XMS_ITS | Data Portability ---
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 Plan of Treatment Reminders Order Date Submit Date Provider Last Modified By Organization Details Last Modified Time Details Appointments None recorded. Lab None recorded. Referral pulmonolo gist referral - Please call patient to schedule appt. Thank you 2018 019 garth Salazar, [address] [facility], [place], [address], 0 17:26:04 Procedures None recorded. Surgeries None recorded. Imaging None recorded. Medication Orders amoxicill in 875 mg tablet 2019 020 [facility], [address] [place], [address], 0 13:29:21 fluticaso ne 113 mcg-salme terol 14 mcg/actua tion breath activated powdr 2019 020 [email or web address], [address] [place], [address], 0 13:21:18 Ventolin HFA 90 mcg/actua tion aerosol inhaler 2019 020 [facility], [address] [place], [address], 0 13:29:20 cetirizin e 10 mg tablet 2018 019 [facility], [address] [place], [address], 9 18:34:08 Ventolin HFA 90 mcg/actua tion aerosol inhaler 2018 019 [facility], [address] [place], [address], 9 18:34:10 Breo Ellipta 100 mcg-25 mcg/dose powder for inhalatio n 2018 019 [place] [address] [facility], [address] [place], [address], 9 08:49:43 Aerospan 80 mcg/actua tion HFA aerosol inhaler 2018 019 [place] [address] [facility], [address] [place], [address], 9 08:49:59 cyclobenz aprine 5 mg tablet 2018 019 [facility], [address] [place], [address], 0 12:37:19 Ventolin HFA 90 mcg/actua tion aerosol inhaler 2018 019 [facility], [address] [place], [address], 9 19:16:47 Ventolin HFA 90 mcg/actua tion aerosol inhaler 2017 018 [facility], [address] [place], [address], 8 15:59:17 fluticaso ne 113 mcg-salme terol 14 mcg/actua tion breath activated powdr 2017 018 [email or web address], [address] [place], [address], 0 13:21:18 carisopro dol 350 mg tablet 2017 018 [facility], [address] [place], [address], 0 12:01:21 tramadol 50 mg tablet 2017 018 [facility], [address] [place], [address], 0 12:02:23 Patient TargetsNo targets recorded. Patient Instructions Encounter Date Encounter Id Patient Instructions Last Modified By Organization Details Last Modified Time 01/21/2018 [id number] amphetamine overdose: care instructions [facility] Not available 01/21/2018 15:49:34 Quitting Tobacco : Care Instructions [facility] Not available 01/21/2018 15:49:33 chronic obstructive pulmonary disease (COPD): care instructions [facility] Not available 01/21/2018 15:49:33 learning about copd and how to prevent lung infections [email or web address] Not available 01/21/2018 15:49:34 05/20/2019 [id number] bronchitis: care instructions Not available 05/20/2019 13:22:41 Reason for Referral [facility] Specialist Referral for C hronic obstructive pulmonary disease COPD Please call patient to schedule appt. Thank you Referring Physician: Anmol Woods, Internal Medicine, Encounter Date: 03/10/2019 Results Created Date Observation Date Name Description Value Unit Range Abnormal Flag Note LastModifiedBy Organization Detail LastModifiedTime 01/01/20 18 01/03/2018 drug scree n, urine summary FINAL ===== ===== ===== ===== ===== ===== ===== ===== ===== ===== ===== ===== ===== === TOXAS SURE COMP DRUG KORIN SIS,U R ===== ===== ===== ===== ===== ===== ===== ===== ===== ===== ===== ===== ===== === Test Resul t Flag Units Drug Prese nt Metha mphet amine 607 ng/mg creat Amphe tamin e 436 ng/mg creat Sourc es of metha mphet amine inclu de illic it sourc es, as a sched uled presc ripti on medic ation , as a metab olite of some presc ripti on drugs , or use of an l-met hamph etami ne inhal er. Amphe tamin e is an expec ene metab olite of metha mphet amine . Amphe tamin e is also avail able as a sched ule II presc ripti on drug. Desme thyld iazep am 39 ng/mg creat Oxaze bronwyn 339 ng/mg creat Temaz epam 131 ng/mg creat Desme thyld iazep am, oxaze bronwyn, and temaz epam are benzo diaze pine drugs , but may also be prese nt as commo n metab olite s of other benzo diaze pine drugs , inclu ding diaze bronwyn. Carbo xy-TH C 33 ng/mg creat Carbo xy-TH C is a metab olite of tetra hydro canna binol (THC) . Sourc e of THC is most commo nly illic it, but THC is also prese nt in a sched uled presc ripti on medic ation . Trama dol 682 ng/mg creat O-Spike methy ltram adol >4630 ng/mg creat N-Spike methy ltram adol 1701 ng/mg creat Sourc e of trama dol is a presc ripti on medic ation . O-spike methy ltram adol and N-spike methy ltram adol are expec ene metab olite s of trama dol. Mepro bamat e PRESE NT Sourc e of mepro bamat e is most commo nly as a metab olite of caris oprod ol, but it is also avail able as a presc ripti on medic ation . Sourc e of caris oprod ol is a sched uled presc ripti on medic ation . Olanz apine PRESE NT Queti apine PRESE NT Napro xen PRESE NT ===== ===== ===== ===== ===== ===== ===== ===== ===== ===== ===== ===== ===== === Test Resul t Flag Units Ref Range Creat inine 108 mg/dL >=20 ===== ===== ===== ===== ===== ===== ===== ===== ===== ===== ===== ===== ===== === Decla red Medic ation s: Medic ation list was not provi ded. ===== ===== ===== ===== ===== ===== ===== ===== ===== ===== ===== ===== ===== === For clini mayo consu ltati on, pleas e call . ===== ===== ===== ===== ===== ===== ===== ===== ===== ===== ===== ===== ===== === Not Available [facility] [address], [place], [address], 01/03/2018 17:12:31 01/01/20 18 01/03/2018 drug scree n, urine pdf . Not Available [facility] [address], [place], [address], 01/03/2018 17:12:31 11/15/19 18 XR, lumba r spine No observ ation record ed. [email or web address] Not Available 2017 10:59:50 04/03/27 1907/18/2018 pulmo nary funct ion test proce dure (PROC ) No observ ation record ed. [address] [facility] [address], [place], [address], 07/21/2018 11:44:08 07/29/19 19 07/11/2018 event monit or No observ ation record ed. [email or web address] [facility] [address], [place], [address], 09/10/2018 10:07:22 08/21/19 19 08/20/2018 cardi ac stres s test No observ ation record ed. [address] [facility] [address], [place], [address], 09/10/2018 09:48:52 08/26/19 19 08/21/2018 home sleep study No observ ation record ed. [address] [facility] [address], [place], [address], 09/10/2018 09:46:49 09/12/19 19 09/08/2018 sleep study , diagn ostic * No observ ation record ed. [email or web address] [facility] [address], [place], [address], 09/11/2018 10:48:59 01/10/2001/09/2019 MRI, lumba r spine , w/o contr ast No observ ation record ed. [address] (Imaging) [address] [place], [address], 2019 11:47:23 01/22/2001/20/2019 arter ial study , upper extre mity, multi ple level No observ ation record ed. [address] [facility] [address], [place], [address], 01/21/2019 18:42:38 01/27/20 19 01/20/2019 ankle brach ial index No observ ation record ed. [email or web address] [facility] [address], [place], [address], 03/20/2019 10:44:49 01/27/20 19 01/26/2019 XR, chest No observ ation record ed. [facility] (Imaging) [address] [place], [address], 02/05/2019 15:48:41 01/28/20 19 01/22/2019 home sleep study No observ ation record ed. [address] [facility] [address], [place], [address], 03/20/2019 09:53:43 01/28/20 19 01/26/2019 XR, chest No observ ation record ed. [address] [facility] [address], [place], [address], 03/20/2019 09:53:16 01/29/20 19 01/28/2019 XR, chest , 2 view No observ ation record ed. [facility] (Imaging) [address] [place], [address], 02/05/2019 15:48:41 02/19/20 19 02/18/2019 MRI, cervi mayo spine , w/o contr ast No observ ation record ed. [address] (Imaging) [address] [place], [address], 03/20/2019 09:49:44 05/07/19 20 05/06/2019 arter ial study , extre mity, singl e level No observ ation record ed. [facility] [address], [place], [address], 05/27/2019 09:36:54 05/21/19 20 05/18/2019 trans -thor acic echoc ardio gram (TTE) (PROC ) No observ ation record ed. [email or web address] [facility] [address], [place], [address], 05/21/2019 19:42:09 05/28/19 20 05/28/2019 XR, chest , 2 view No observ ation record ed. [email or web address] [facility] (Imaging) [address] [place], [address], 05/29/2019 13:11:53 12/16/19 21 12/15/2020 XR, chest No observ ation record ed. [email or web address] [facility] [address] [place], [address], 12/16/2020 16:53:40 Result Notes None recorded. Problems Name Problem SNOMED Code Status Onset Date Resolution Date Notes Provider Name and Address Organization Details Recorded Time Diverticula r disease 396124537 Active 2016 Anmol Woods MD Attn: Yane otero,[address] [place], [address], [facility] 7 12:11:59 Diarrhea 36575959 Active 2017 Anmlo Woods MD Attn: Yane otero,[address] [place], [address], [place] [facility] 8 12:32:28 Abdominal pain 73055052 Active 2017 Anmol Woods MD Attn: Yane otero,[address] [place], [address], [place] [facility] 8 12:32:48 Serous otitis media of left ear 8260289325555 103 Active 2018 Anmol Wodos MD Attn: Yane otero,[address] [place], [address], [place] [facility] 9 18:23:46 Chronic pain syndrome 348146891 Active 2018 Anmol Woods MD Attn: Yane otero,[address] [place], [address], [place] [facility] 9 21:26:15 Bipolar disorder 73605918 Active Anmol Woods MD Attn: Accountin g,[address] [facility], [place], [address], [place] [facility] 6 11:27:40 Low back pain 636893132 Active Anmol Woods MD Attn: Accountin g,[address] [facility], [place], [address], [place] [facility] 6 11:27:40 Neck pain 53313634 Active Anmol Woods MD Attn: Accountin g,[address] [facility], [place], [address], [place] [facility] 6 13:18:31 Mammography abnormal 275661758 Active Anmol Woods MD Attn: Accountin g,[address] [facility], [place], [address], [place] [facility] 6 14:58:41 Macrocytosi s 385882856 Active Anmol Woods MD Attn: Accountin g,[address] [facility], [place], [address], [place] [facility] 6 05:59:04 Abdominal mass 779543034 Active Anmol Woods MD Attn: Accountin g,[address] [facility], [place], [address], [place] [facility] 6 13:18:31 Serous otitis media 57650166 Active Anmol Woods MD Attn: Accountin g,[address] [facility], [place], [address], [place] [facility] 6 13:18:31 Constipatio n 97263824 Active 2015 Anmol Woods MD Attn: Accountin g,[address] [facility], [place], [address], [place] [facility] 6 19:20:38 Joint pain 33427109 Active Anmol Woods MD Attn: Accountin g,[address] [facility], [place], [address], [place] [facility] 5 13:41:29 Feeling stressed 029531108 Active 2016 Anmol Woods MD Attn: Yane otero,[address] [facility], [place], [address], [place] [facility] 7 11:21:06 Macrocytic anemia 83515976 Active 2016 Anmol Woods MD Attn: Yane otero,[address] [facility], [place], [address], [place] [facility] 7 02:37:35 Dyspnea 041945628 Active 2016 Anmol Woods MD Attn: Yane otero,[address] [facility], [place], [address], [place] [facility] 7 17:05:36 Bronchitis 92079069 Active 2016 Anmol Woods MD Attn: Yane otero,[address] [facility], [place], [address], [place] [facility] 7 17:08:15 Medication monitoring Active 2016 Anmol Woods MD Attn: Yane otero,[address] [facility], [place], [address], [place] [facility] 7 17:09:04 Left lower quadrant pain 016917016 Active 2016 Anmol Woods MD Attn: Yane otero,[address] [facility], [place], [address], [place] [facility] 7 11:35:09 Complaining of pelvic pain Active 2016 left lower Anmol Woods MD Attn: Yane otero,[address] [facility], [place], [address], [place] [facility] 7 11:35:47 Active immunizatio n Active 2016 Anmol Woods MD Attn: Katerinaal otero,[address] [facility], [place], [address], [place] [facility] 7 11:36:38 Notes:Some problems listed i n Document: #[id number] could not be added to this patient's chart. Please review this document and add these problems to the patient's chart manually as needed. Problem Notes None recorded. Procedures Surgical History Date Name Laterality Status Provider Name and Address Organization Details Recorded Time Tubal Ligation completed Lauryn Escalona MA [facility] 05/20/2019 12:39:16 Nipple/areola reconstruction completed Lauryn Escalona MA [facility] 05/20/2019 12:39:40 Imaging Results Imaging Date Name Status LastModified by Organization Details LastModified Time 11/14/2017 XR, lumbar spine [place] [address] Informat ion not available 11/25/2017 10:59:50 07/18/2018 pulmonary function test procedure (PROC) completed [address] [facility] [address], [place], [address], 07/21/2018 11:44:08 07/11/2018 event monitor completed [address] [facility] [address], [place], [address], 09/10/2018 10:07:22 08/20/2018 cardiac stress test completed [address] [facility] [address], [place], [address], 09/10/2018 09:48:52 08/21/2018 home sleep study completed [address] [facility] [address], [place], [address], 09/10/2018 09:46:49 09/08/2018 sleep study, diagnostic* completed [facility] [address], [place], [address], 09/11/2018 10:48:59 01/09/2019 MRI, lumbar spine, w/o contrast completed [address] (Imaging) [address] [place], [address], 2019 11:47:23 01/20/2019 arterial study, upper extremity, multiple level completed [place] [address] [facility] [address], [place], [address], 01/21/2019 18:42:38 01/20/2019 ankle brachial index completed [facility] [address], [place], [address], 03/20/2019 10:44:49 01/26/2019 XR, chest completed [facility] (Imaging) [address] [place], [address], 02/05/2019 15:48:41 01/22/2019 home sleep study completed [address] [facility] [address], [place], [address], 03/20/2019 09:53:43 01/26/2019 XR, chest completed [address] [facility] [address], [place], [address], 03/20/2019 09:53:16 01/28/2019 XR, chest, 2 view completed [facility] (Imaging) [address] [place], [address], 02/05/2019 15:48:41 02/18/2019 MRI, cervical spine, w/o contrast completed [address] (Imaging) [address] [place], [address], 03/20/2019 09:49:44 05/06/2019 arterial study, extremity, single level completed [facility] [address], [place], [address], 05/27/2019 09:36:54 05/18/2019 trans-thoracic echocardiogram (TTE) (PROC) completed [facility] [address], [place], [address], 05/21/2019 19:42:09 05/28/2019 XR, chest, 2 view completed [facility] (Imaging) [address] [place], [address], 05/29/2019 13:11:53 12/15/2020 XR, chest completed [email or web address] [facility] [address] [place], [address], 12/16/2020 16:53:40 Procedure Notes None recorded. Medical Equipment None Reported. Allergies No known drug allergies Medications Name Sig Start Date Stop Date Status Note LastModified by Organization Details LastModified Time carisoprodo l 350 mg tablet Take 1 tablet(s) 3 times a day by oral route. 05/20 completed Not Available Not Available Not Available Effexor XR 75 mg capsule,ext ended release Take 1 capsule every day by oral route. 2014 active Not Available Not Available Not Avai lable cetirizine 10 mg tablet Take 1 tablet every day by oral route. active Not Available Not Available No t Available Stool Softener 100 mg capsule Take 2 capsules every day by oral route. active Not Available Not Available No t Available azithromyci n 250 mg tablet TAKE 2 TABLETS (500 MG) BY ORAL ROUTE ONCE DAILY FOR 1 DAY THEN 1 TABLET (250 MG) BY ORAL ROUTE ONCE DAILY FOR 4 DAYS 01/21 completed Not Available Not Available Not Available clonazepam 0.5 mg tablet Take 0.5 tablets twice a day by oral route as needed. 05/20 completed Not Available Not Available Not Available olanzapine 10 mg tablet active Not Available Not Available Not Available tramadol 50 mg tablet Take 1 tablet(s) every 8 hours by oral route as needed. 05/20 completed Not Available Not Available Not Available quetiapine 100 mg tablet active Not Available Not Available Not Available amoxicillin 875 mg tablet Take 1 tablet every 12 hours by oral route as directed for 5 days. active Not Available Not Available No t Available lithium carbonate 300 mg capsule Take 1 capsule twice a day by oral route. active Not Available Not Available No t Available Advair Diskus 250 mcg-50 mcg/dose powder for inhalation one puff BID 05/28 completed Not Available Not Available Not Available bisacodyl 5 mg tablet,booker yed release 05/20 completed Not Available Not Available Not Available ibuprofen 600 mg tablet Take 1 tablet 3 times a day by oral route as needed. 01/21 completed Not Available Not Available Not Available levofloxaci n 500 mg tablet 05/20 completed Not Available Not Available Not Available albuterol sulfate HFA 90 mcg/actuati on aerosol inhaler INHALE TWO PUFFS BY MOUTH FOUR TIMES A DAY NEEDED active Not Available Not Available No t Available Naprosyn 500 mg tablet Take 1 tablet twice a day by oral route with meals. 2014 active Not Available Not Available Not Avai lable cefdinir 300 mg capsule Take 1 capsule every 12 hours by oral route as directed for 5 days. active Not Available Not Available No t Available olanzapine 20 mg tablet active Not Available Not Available Not Available loratadine 10 mg tablet Take 1 tablet every day by oral route as needed. 05/20 completed Not Available Not Available Not Available Vistaril 50 mg capsule Take 1 capsule as needed by oral route at bedtime. 05/20 completed Not Available Not Available Not Available amoxicillin 875 mg-potassiu m clavulanate 125 mg tablet 05/20 completed Not Available Not Available Not Available hydroxyzine pamoate 25 mg capsule active Not Available Not Available N ot Available cyclobenzap rine 5 mg tablet TAKE ONE TABLET 3 TIMES DAILY NEEDED 05/20 completed Not Available Not Available Not Available lactulose 10 gram/15 mL oral solution active Not Available Not Available Not Available Symbicort 160 mcg-4.5 mcg/actuati on HFA aerosol inhaler 05/28 completed Not Available Not Available Not Available Symbicort 80 mcg-4.5 mcg/actuati on HFA aerosol inhaler TAKE 2 PUFFS BY MOUTH TWICE A DAY active Not Available Not Available No t Available peg 3350 240 gram-electr olytes 22.72 gram-6.72 g-5.84 g powdr for soln 05/20 completed Not Available Not Available Not Available Breo Ellipta 100 mcg-25 mcg/dose powder for inhalation Inhale 1 puff every day by inhalatio n route. 04/03 completed Not Available Not Available Not Available Aerospan 80 mcg/actuati on HFA aerosol inhaler Inhale 2 puff(s) twice a day by inhalatio n route. 04/03 completed Not Available Not Available Not Available fluticasone 113 mcg-salmete rol 14 mcg/actuati on breath activated powdr 05/28 completed Not Available Not Available Not Available Fluzone Quad (PF) 60 mcg (15 mcg x 4)/0.5 mL IM syringe 05/20 completed Not Available Not Available Not Available Vitals Date Recorded Body height Body mass index (BMI) Body weight Oxygen saturation Oxygen saturation in Arterial blood by Pulse oximetry Heart rate Body temperature Systolic blood pressure Diastolic blood pressure Provider Name and Address Organization Details Last Updated DateTime 8 154.94 cm 26.3 kg/m2 42552.7 8 g 97 % 97 % 91 /min 97.8 [degF] 106 mm[Hg] 74 mm[Hg] Chasity Turner [place] [facility] 8 15:27:25 Date Recorded Body height Body mass index (BMI) Body weight Body temperature Oxygen saturation Oxygen saturation in Arterial blood by Pulse oximetry Heart rate Systolic blood pressure Diastolic blood pressure Systolic blood pressure Diastolic blood pressure Provider Name and Address Organization Details Last Updated DateTime 8 154.94 cm 24.7 kg/m2 71211.8 8 g 98.2 [degF] 99 % 99 % 114 /min 140 mm[Hg] 90 mm[Hg] 146 mm[Hg] 96 mm[Hg] Ric Dover MA [facility] 8 15:23:33 Date Recorded Body height Body mass index (BMI) Body weight Body temperature Oxygen saturation Oxygen saturation in Arterial blood by Pulse oximetry Heart rate Systolic blood pressure Diastolic blood pressure Provider Name and Address Organization Details Last Updated DateTime 9 154.94 cm 24.4 kg/m2 25272.4 2 g 97.9 [degF] 99 % 99 % 96 /min 142 mm[Hg] 88 mm[Hg] Chasity Turner MA [facility] 9 18:32:34 Date Recorded Body height Body mass index (BMI) Body weight Body temperature Oxygen saturation Oxygen saturation in Arterial blood by Pulse oximetry Heart rate Systolic blood pressure Diastolic blood pressure Provider Name and Address Organization Details Last Updated DateTime 9 154.94 cm 27 kg/m2 29808.7 1 g 98 [degF] 98 % 98 % 90 /min 112 mm[Hg] 80 mm[Hg] Chasity Turner MA [facility] 9 17:54:37 Date Recorded Body height Body mass index (BMI) Body weight Heart rate Body temperature Oxygen saturation Oxygen saturation in Arterial blood by Pulse oximetry Systolic blood pressure Diastolic blood pressure Provider Name and Address Organization Details Last Updated DateTime 0 154.94 cm 26.6 kg/m2 20758.1 2 g 112 /min 98 [degF] 99 % 99 % 108 mm[Hg] 72 mm[Hg] Lauryn Escalona MA [facility] 0 12:35:13 Social History Question Answer Notes LastModified by Organizat ion Details LastModified Time Tobacco Smoking Status Current Every Day Smoker Lucia Musadorys nix, [facility] 04/12/2014 12:31:26 What Was The Date Of Your Most Recent Tobacco Screening? 04/14/2018 Information not available 10/30/2018 How Much Tobacco Do You Smoke? 0.5 PPD [email or web address] Information not available 02/24/2015 On What Date Was Tobacco Cessation Counseling Provided? 05/20/2019 Information not available 05/20/2019 How Many Years Have You Smoked Tobacco? 35 [email or web address] Information not available 09/19/2017 Sex: Unknown Functional Status None recorded. Mental Status None recorded. Family History Relationship Description Onset Age of this Age Resolved Age Notes LastModified by Organization Details LastModified Time Mother Diabetes mellitus [email or web address] Not available 02/06 10:22:00 Mother Depressive disorder [email or web address] Not available 02/06 10:22:00 Mother Malignant neoplasm of liver [email or web address] Not available 02/06 10:22:00 Father History of hypertension [email or web address] Not available 04/26/2014 10:22:00 Father Chronic obstructive pulmonary disease [email or web address] Not available 02/06 10:22:00 Medical History Condition Response Depression Y Muscle, Joint, or Bone Problems Y Gynecological History Statement/Question Response Menses Monthly N Age at Menarche 18 Current Control Method Tubal Ligat ion Age at First Child 26 LMP Unknown Obstetrics History GPAL:G 3 P 2 0 1 2 Type Value Full Term 2 Spontaneous 1 Living 2 Total 3 Immunizations Vaccine Type Date Status Note Provider Nam e and Address Organization Details Recorded Time COVID-19 vaccine, vector-nr, rS-Ad26, PF, 0.5 mL 1 completed Not Available [facility] 06/07/2021 00:51:16 Influenza, split virus, quadrivalent, preservative 7 completed Not Available [facility] 04/25/2019 02:45:29 pneumococcal polysaccharide PPV23 9 completed Not Available [facility] 04/25/2019 02:38:49 Influenza, split virus, trivalent, PF 5 completed Not Available [facility] 04/25/2019 02:31:46 Past Encounters Encounter ID Performer Location Encounter Start Date Encounter Closed Date Diagnosis/Indication Diagnosis SNOMED-CT Code Diagnosis ICD10 Code Diagnosis Note [id number] MD Cathy Villanueva (Adult Med) [address] [place] [address] [phone] [id number] 04/12/2014 12:09:23 04/12/2014 13:46:49 Joint pain [id number] Bipolar disorder [id number] [facility] [address] [place] [address] [id number] [id number] 02/24/2015 09:59:36 02/24/2015 11:06:09 Low back pain 999106914 M54.5 Screening for malignant neoplasm of breast 594545455 Z12.39 Screening for osteoporosis 094869368 Z13.820 Screening for malignant neoplasm of colon 544396625 Z12.11 Patient refuses Screening for malignant neoplasm of cervix 903517651 Z12.4 Recommende d that pt see [facility] Influenza vaccine needed [id number] 106 Z23 [id number] Mavis Morgan (Adult Med) [address] [place] [address] [id number] 0 07/26/2015 09:58:15 07/26/2015 11:43:10 Low back pain 943558926 M54.5 Neck pain 18805493 M54.2 Bipolar disorder 4155751 4 F31.9 [id number] Paulina Pandey is Cathy (Adult Med) [address] [place] [address] [id number] 0 10/17/2015 11:57:53 10/17/2015 13:20:28 Abdominal mass 194785657 R19.00 Serous otitis media 8032 7007 H65.93 Neck pain 08837064 M54.2 [id number] MD Cathy Villanueva (Adult Med) [address] [place] [address] [id number] 0 03/19/2016 10:04:17 06/24/2016 00:24:34 Joint pain 21690964 M25.50 [id number] [facility] [address] [place] [address] [id number] 0 04/12/2016 09:16:35 04/12/2016 11:28:38 Feeling stressed 815830385 Z73.3 [id number] [facility] [address] [place] [address] 82195-575 0 06/19/2016 15:51:20 06/19/2016 17:01:57 Low back pain 670652990 M54.5 Neck pain 88197840 M54.2 Dyspnea 774961004 R06.02 Bronchitis 04183578 J40 Medication monitoring 39 9827041 Z51.81 Feeling stressed 2937446 06 Z73.3 [id number] MD Cathy Villanueva (Adult Med) [address] [place] [address] [id number] 0 09/19/2016 15:54:49 09/19/2016 17:31:05 Low back pain 394153299 M54.5 Joint pain 54817968 M25. 50 Constipation 35630969 K5 9.00 [id number] MD Cathy Villanueva (Adult Med) [address] [place] [address] [id number] 0 01/16/2017 10:14:29 01/16/2017 11:53:17 Complaining of pelvic pain 900266757 R10.2 Left lower quadrant pain 582125806 R10.32 Active immunization 3387 9002 Z23 Low back pain 445728108 M54.5 [id number] MD Cathy Villanueva (Adult Med) [address] [place] [address] [id number] 0 03/20/2017 10:03:01 03/20/2017 12:16:38 Low back pain 831999311 M54.5 Neck pain 17302335 M54.2 [id number] MD Cathy Villanueva (Adult Med) [address] [place] [address] [id number] 0 06/19/2017 11:36:12 06/19/2017 12:39:35 Diverticular disease 963497225 K57.90 Abdominal pain 51697437 R10.9 Constipation 90740206 K5 9.00 [id number] MD Cathy Villanueva (Adult Med) [address] [place] [address] [id number] 0 09/19/2017 15:08:53 09/19/2017 16:25:44 Low back pain 891244610 M54.5 increase carisoprod ol to TID [id number] Euseb[facility] [address] [place] [address] [id number] 0 01/21/2018 14:49:20 01/21/2018 15:51:39 Chronic obstructive pulmonary disease 29458166 J44.9 Nicotine dependence 5629 4008 F17.200 Amphetamine abuse 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 and advised her to get rehabilita tion. She is asking for refills of tramadol for her arthritis .F/U with Dr. Kris Woods. Recurrent sinusitis 1956 86193 J32.9 [id number] MD Cathy Villanueva (Adult Med) [address] [place] [address] [id number] 0 04/14/2018 17:19:21 04/15/2018 11:36:38 Bronchitis 12136804 J40 Dyspnea 760853253 R06.02 Chronic ob structive pulmonary disease 81617332 J44.9 Low back pain 243498879 M54.5 [id number] JULIO Man (Adult Med) [address] [place] [address] [id number] 0 03/10/2019 16:50:02 03/11/2019 11:45:01 Active immunization 81472594 Z23 Chronic ob structive pulmonary disease 31462787 J44.9 Serous maia tis media of left ear 2360694698 958673 H65.92 [id number] INA REED [facility] (Adult Med) [address] [place] [address] 05/20/2019 12:23:35 05/21/2019 10:45:33 Acute bronchitis 82961345 J20.9 Complainin g today of productive cough x 2 weeks.It started off as nasal congestion , rhinorrhea , ear pain, sore throat, and slight cough. Most of her sx have resolved but still complainin g of productive cough with yellow sputum.Adm its to hot/cold changes, and overall fatigue.De nies recent travel. Denies sick contacts.O n PE: pulse 112 bpm, no fever, and 99% on RA. fluid present behind TMs bilaterall y, normal lung soundsAcut e bronchitis vs COPD ex.- Will start amoxicilli n x 5 days- continue with supportive care at home, especially get lots of rest and drink lots of fluids- continue using inhalers as directed- encouraged to stop smoking- If patient develops fever, worsening of cough, increased sputum production , SOB, and chest pain, she is to go to ER- f/u with PCP Chronic ob structive pulmonary disease 21675797 J44.9 Hx of COPD, still smoking 1/2 PPDNeeds refills on inhalers- Will send refills to pharmacy Tobacco user 175004098 Z 72.0 Smokes 1/2 PPD- Advised patient to quit smoking, discussed risks of continuing and benefits from quitting, patient to reach out for help when interested in quitting Positive s creening for depression on PHQ-9 (Patient Health Questionnaire 9) 9401489678 62298 Z13.89 PHQ 2/9 was mild in office today (8 out of 27).Denies HI/SI.- continue to monitor at upcoming visits Health Concerns Section Related Observation LastModified by Organization Detai ls LastModified Time None Recorded Concern Status LastModified by Organization Details LastModified Time None Recorded Advance Directives Directive None Recorded Payers Encounter Date Sequence Insurance Name Policy Number Policy Gresham Covered Member ID Gresham Member ID Guarantor Name 09/19/2017 1 [facility] - [facility] PRIOR TO 2020 (MEDICAID REPLACEMENT - HMO) Nenita Andres [id number] Nenita Andres 01/21/2018 1 [facility] PRIOR TO 10/06/2020 (MEDICAID REPLACEMENT - HMO) Nenita Piel [id number] Nenita Piel 04/14/2018 1 [facility] PRIOR TO 10/06/2020 (MEDICAID REPLACEMENT - HMO) Nenita Piel [id number] Nenita Piel 03/10/2019 1 [facility] PRIOR TO 10/06/2020 (MEDICAID REPLACEMENT - HMO) Nenita Piel [id number] Nenita Piel 05/20/2019 1 [facility] (MEDICAID HMO) [id number] Nenita Piel [id number] Nenita Piel Notes Date Note Type Note Provider Name and Address Organization Details Recorded Time 09/19/2017 text/html no new complaint s. Enquiring if muscle relaxant dose could be increased. Anmol Woods MD Attn: [address] [place], [address], [facility] 09/19/2017 16:23:44 01/21/2018 text/html F/U for DR. Kris Woods. Eusebia Buenrostro MD Attn: [address] [place], [address], [facility] 01/21/2018 15:51:05 04/14/2018 text/html Concerned about positive UDS. Anmol Woods MD Attn: [address] [place], [address], [facility] 04/14/2018 19:04:29 03/10/2019 text/html Having trouble breathing. Left ear is clogged. Wants pneumonia vaccine. nasal congestion Chasity Turner MA [facility], [place] [facility] 03/16/2019 09:56:46 05/20/2019 text/html 59 year old jasbir cuello with history of COPD presents today for productive cough x 2 weeks. It started off as nasal congestion, rhinorrhea, ear pain, sore throat, and slight cough. Most of those symptoms have resolved but now complaining of productive cough with yellow sputum. Her inhalers have been helping during this episode but ran out of them, is in the need for refills. Admits to hot/cold changes, and overall fatigue. Denies recent travel. Denies sick contacts. Today she denies fever, nausea, vomiting, sore throat, ear pain, headaches, chest pain, pleuritic chest pain, rash, SOB, abdominal pain, diarrhea, constipation, or dysuria. INA REED Attn: [address] [place], [address], [place] [facility] 05/20/2019 16:04:56 OBGyn Episode No OBEpisode recorded.
--- OUTSIDE RECORDS SUMMARY | 2024-07-16 20:23 | XMS_ITS | Clinical Summary ---
Author Organization [facility] Address [address] [place] [id number] Care Team Providers Care Academic Advising Director Name Role Phone Unavailable Primary Care Provider Unavailabl e Social History Tobacco Use Types Packs/Day Years Used Date Smoking Tobacco: Never Assessed Comments Unknown Sex and Gender Information Value Date Recorded Sex Assigned at Not on file Legal Sex Female 7:40 PM CDT Gender Identity Not on file Sexual Orientation Not on file Plan of Treatment Health Maintenance Due Date Last Done Comments Cervical Cancer Screening Pa p Smear (Age 30 to 64) Every 3 Years 1962 Colorectal Cancer Screening Colonoscopy (10 Years) 1962 Annual Physical 1965 Hepatitis C 01/11/1980 DTaP, Tdap and Td Vaccines ( 1 - Tdap) 1981 Cervical Cancer Screening Pa p with HPV Testing (Age 30 to 64) Every 5 Years 01/11/1992 Cervical Cancer Screening with HPV 01/11/1992 Mammogram Screening 2002 Zoster Vaccines (1 of 2) 01/11/2012 COVID-19 Vaccine ( - 2023-2 5 season) 2023 RSV Immunization or 60+ Years (1 - 1-dose 75+ series) 2037 Meningococcal B Vaccine Aged Out No l onger eligible based on patient's age to complete this topic Meningococcal Vaccine Aged Out No phani janet eligible based on patient's age to complete this topic Pneumococcal Vaccine: Pediat rics (0 to 5 Years) and At-Risk Patients (6 to 64 Years) Aged Out No longer eligible b ased on patient's age to complete this topic RSV Immunizations Under 20 Months Aged Out No longer eligible based on patient's age to complete this topic
[2024-07-16 20:24] LABS: Basophils Percent Auto 0.3 % (0.2-1.2); Eosinophils Absolute Auto 0.1 K/mm3 (0-0.3); Eosinophils Percent Auto 0.4 % (0-4.4); Hematocrit 38.1 % (37.0-47.0); Hemoglobin 12.1 g/dL (12.0-15.0); Immature Granulocyte Absolute 0.04 K/mm3 (0.00-0.031); Immature Granulocyte Percent A 0.3 % (0-0.5); Lymphocytes Absolute Auto 1.02 K/mm3 (0.9-3.2); Lymphocytes Percent Auto 8.8 % (18.3-44.2); Mean Corpuscular HGB Conc 31.8 g/dl (32-36); Mean Corpuscular Hemoglobin 33.3 pg (26-34); Mean Platelet Volume 10.9 fl (7.4-10.4); Monocytes Absolute Auto 1.2 K/mm3 (0.1-0.6); Monocytes Percent Auto 10.1 % (2.6-8.5); Neutrophils Absolute Auto 9.3 K/mm3 (1.3-6.7); Neutrophils Percent Auto 80.1 % (45.5-73.1); Platelet Count Result 200 k/mm3 (150-375); Red Blood Count 3.63 M/mm3 (4.2-5.4); Red Cell Distribution Width 13.2 % (11.5-14.5); White Blood Count 11.7 K/mm3 (4.5-10.0)
[2024-07-16 20:33] LABS: Alanine Aminotransferase 25 U/L (6-35); Albumin Level 4.3 g/dL (3.5-5.1); Alkaline Phosphatase 114 U/L (38-126); Anion Gap 14 mmol/L (4-12); Aspartate Amino Transferase 27 U/L (14-36); Bilirubin,Total 0.4 mg/dL (0.2-1.3); Blood Urea Nitrogen 10 mg/dL (7-17); Calcium 8.8 mg/dL (8.4-10.2); Carbon Dioxide 20 mmol/L (22-30); Chloride 102 mmol/L (98-107); Estimated CRCL calculation 68 ml/min; Estimated Glomerular Filt Rate > 60; Glucose 148 mg/dL (65-110); Potassium 3.5 mmol/L (3.4-5.0); Sodium 136 mmol/L (137-145)
[2024-07-16] MEDS: IPRATROPIUM 0.5 MG/ALBUTEROL SULFATE 2.5 MG AMPUL.NEB 3 ML INHALATION (21:19)
[2024-07-16 22:15] LABS: Add Urine Microscopic? NO; Appearance Urine Clear (Clear); Bilirubin Urine Negative (Negative); Blood Urine Negative (Negative); Color Urine Yellow (Yellow); Glucose Urine UA Negative (Negative); Ketones Urine Negative (Negative); Leukocyte Esterase Ur Negative LEU/UL (Negative); Nitrate Urine Negative (Negative); Protein Urine Negative (Negative); Specific Grav Ur 1.004 (1.001-1.035); Urobilinogen Urine 0.2 mg/dL (<2.0); pH Urine 5.5 (5.0-9.0)
[2024-07-16 22:23] LABS: Lactic Acid Reflex 1.9 mmol/L (0.7-2.0)
[2024-07-16 22:24] LABS: Magnesium 1.8 mg/dL (1.6-2.3)
[2024-07-16 22:50] LABS: Influenza A QL RT-PCR Negative (Negative); Influenza B QL RT-PCR Negative (Negative); RSV RNA, RT-PCR Negative (Negative); SARS-CoV-2 RNA PCR Negative (Negative)
[2024-07-16 23:48] LABS: NT Pro B Type Natriuretic Pept 143 pg/mL (19.9-100); Troponin I < 0.012 ng/mL (0.000-0.034)
[2024-07-17] VITALS (8 sets, daily range): BP systolic 98–132; BP diastolic 52–96; PULSE 109–120; RESP 17–29; TEMP 36.4; O2SAT 93–97
[2024-07-17 00:01] LABS: Procalcitonin 0.1 ng/mL
--- NOTE | 2024-07-17 00:08 | ED.GENADULT ---
HPI - General Adult General Chief complaint: Shortness of Breath/Dyspnea Stated complaint: SOB, O2 REQUIREMENT Time Seen by Provider: 07/16/24 20:15 History of Present Illness HPI narrative: Patient 8-year-old female who presents emergency department with chief complaint of shortness of breath. The patient has prior history of COPD reports that she has been around individuals that have had COVID-19 and reports that she has had a cough and has felt more short of breath patient was seen by EMS and given Decadron in route and also nebulizer treatments. Patient does report that she is feeling better at this time Related Data Home Medications ?Medication ?Instructions ?Recorded ?Confirmed ?Last Taken ?Type cetirizine 10 mg capsule (All Day 10 mg PO DAILY PRN 05/03/23 01/22/24 Unknown History Allergy (cetirizine)) famotidine 40 mg tablet 40 mg PO DAILY 05/03/23 01/22/24 Unknown History gabapentin 300 mg capsule 300 mg PO BID 05/03/23 01/22/24 Unknown History metoprolol succinate 25 mg 25 mg PO BID 05/03/23 01/22/24 Unknown History tablet,extended release 24 hr naproxen 500 mg tablet 500 mg PO BID 05/03/23 01/22/24 Unknown History paliperidone palm (3 month) 273 273 mg IM [id number] 05/03/23 01/22/24 Unknown History mg/0.88 mL intramuscular syringe (Cornell Patel) quetiapine 100 mg tablet 100 mg PO QHS 05/03/23 01/22/24 Unknown History quetiapine 150 mg tablet 150 mg PO QHS 05/03/23 01/22/24 Unknown History atorvastatin 20 mg tablet 20 mg PO DAILY 01/22/24 01/22/24 Unknown History nicotine 14 mg/24 hr daily 1 patch topical DAILY 01/22/24 01/22/24 Unknown History transdermal patch Allergies Allergy/AdvReac Type Severity Reaction Status Date / Time No Known Allergies Allergy Verified 01/22/24 14:19 Review of Systems Review of Systems: A 10 system review of systems was completed on the patient and is negative except for what is stated in the HPI. Nursing and ancillary documentation was reviewed. [facility] Past Medical History Medical History Hypertensive disorder Bipolar 1 disorder Depression Arthritis Surgical History Surgical History History of mandibular surgery H/O section Family History Family History Mother Liver cancer Father COPD (chronic obstructive pulmonary disease) Sibling Pneumonia Sibling CKD (chronic kidney disease) Son Hypertension Social History Social History Smoking packs per day: 0.50 Smoking cigarettes per day: 10.0 Years smoked: 30 Smoking pack-years: 15.00 Smoking status: Current every day smoker Tobacco type: cigarettes Alcohol intake: never Substance use: former Substance use type: marijuana and crack/cocaine Other substance usage details: 1x/week for 1 year Last use: last 5 years ago Living arrangements: alone Occupation/Education: other Additional occupation/education comments: Disability 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 HEAD: Normocephalic, atraumatic. EYES: PERRLA and EOMI. ENT: Nares clear, no rhinorrhea or epistaxis. Mucous membranes moist. NECK: Supple. CHEST: Scattered wheezes to auscultation. No respiratory distress. HEART: Regular rate and rhythm. No murmur heard. Normal peripheral pulses. ABDOMEN: Soft, nontender, nondistended, normal active bowel sounds. EXTREMITIES: Normal range of motion. No edema. SKIN: Warm, dry, no rash. NEURO: No focal deficits. Alert and oriented x3. PSYCH: Normal mood and affect. Course Vital Signs Vital signs: Vital Signs Temperature 36.4 C 07/16/24 20:04 Pulse Rate 137 H 07/16/24 20:04 Respiratory Rate 20 07/16/24 20:04 Blood Pressure 116/80 07/16/24 20:04 Pulse Oximetry 96 07/16/24 20:04 Oxygen Delivery Room Air 07/16/24 20:04 Temperature 36.4 C 07/16/24 20:04 Pulse Rate 109 H 07/17/24 01:01 Respiratory Rate 21 H 07/17/24 01:01 Blood Pressure 98/81 L 07/17/24 01:01 Pulse Oximetry 95 07/17/24 01:01 Oxygen Delivery Room Air 07/16/24 21:05 Medical Decision Making MDM Narrative Medical decision making narrative: Differential diagnosis includes pneumonia, upper respiratory infection, COVID, flu, RSV COVID flu and RSV were negative Chest x-ray showed evidence of a pulmonary nodule but no evidence of focal infiltrate Vital Signs Vital Signs: Vital Signs Temperature 36.4 C 07/16/24 20:04 Pulse Rate 137 H 07/16/24 20:04 Respiratory Rate 20 07/16/24 20:04 Blood Pressure 116/80 07/16/24 20:04 Pulse Oximetry 96 07/16/24 20:04 Oxygen Delivery Room Air 07/16/24 20:04 Temperature 36.4 C 07/16/24 20:04 Pulse Rate 109 H 07/17/24 01:01 Respiratory Rate 21 H 07/17/24 01:01 Blood Pressure 98/81 L 07/17/24 01:01 Pulse Oximetry 95 07/17/24 01:01 Oxygen Delivery Room Air 07/16/24 21:05 Lab Data 07/16/24 20:19 07/16/24 20:18 Labs: Lab Results 07/16/24 07/16/24 07/16/24 Range/Units 20:18 20:19 22:06 WBC 11.7 H (4.5-10.0) K/mm3 RBC 3.63 L (4.2-5.4) M/mm3 Hgb 12.1 (12.0-15.0) g/dL Hct 38.1 (37.0-47.0) % MCV 105.0 H (80-100) fl MCH 33.3 (26-34) pg MCHC 31.8 L (32-36) g/dl RDW 13.2 (11.5-14.5) % Plt Count 200 (150-375) k/mm3 MPV 10.9 H (7.4-10.4) fl Immature Gran % (Auto) 0.3 (0-0.5) % Neut % (Auto) 80.1 H (45.5-73.1) % Lymph % (Auto) 8.8 L (18.3-44.2) % [place] % (Auto) 10.1 H (2.6-8.5) % Eos % (Auto) 0.4 (0-4.4) % Baso % (Auto) 0.3 (0.2-1.2) % Lymph # (Auto) 1.02 (0.9-3.2) K/mm3 [place] # (Auto) 1.2 H (0.1-0.6) K/mm3 Eos # (Auto) 0.1 (0-0.3) K/mm3 Baso # (Auto) 0.0 (0.0-0.1) K/mm3 Abs Immat Gran (auto) 0.04 H (0.00-0.031) K/mm3 Absolute Neuts (auto) 9.3 H (1.3-6.7) K/mm3 Absolute Nucleated RBC 0.000 (0.0-0.012) K/mm3 Nucleated RBC % 0.0 (0.0-0.2) % Sodium 136 L (137-145) mmol/L Potassium 3.5 (3.4-5.0) mmol/L Chloride 102 (98-107) mmol/L Carbon Dioxide 20 L (22-30) mmol/L Anion Gap 14 H (4-12) mmol/L BUN 10 (7-17) mg/dL Creatinine 0.66 L (0.7-1.0) mg/dL Estim Creat Clear Calc 68 ml/min Estimated GFR > 60 (59 - ) Glucose 148 H (65-110) mg/dL Lactic Acid 1.9 (0.7-2.0) mmol/L Calcium 8.8 (8.4-10.2) mg/dL Magnesium 1.8 (1.6-2.3) mg/dL Total Bilirubin 0.4 (0.2-1.3) mg/dL AST 27 (14-36) U/L ALT 25 (6-35) U/L Alkaline Phosphatase 114 (38-126) U/L Troponin I < 0.012 (0.000-0.034) ng/mL NT-Pro-B Natriuret Pep 143 H (19.9-100) pg/mL Total Protein 7.0 (6.3-8.2) g/dL Albumin 4.3 (3.5-5.1) g/dL Procalcitonin 0.1 ng/mL Urine Color Yellow (Yellow) Urine Appearance Clear (Clear) Urine pH 5.5 (5.0-9.0) Ur Specific [place] 1.004 (1.001-1.035) Urine Protein Negative (Negative) mg/dL Urine Glucose (UA) Negative (Negative) mg/dL Urine Ketones Negative (Negative) mg/dL Ur Blood (Man) Negative (Negative) Urine Nitrate Negative (Negative) Urine Bilirubin Negative (Negative) Urine Urobilinogen 0.2 (<2.0) mg/dL Leukocyte Esterase Rfl Negative (Negative) TELMA/UL Influenza A (RT-PCR) Negative (Negative) Influenza B (RT-PCR) Negative (Negative) RSV (RT-PCR) Negative (Negative) SARS-CoV-2 RNA (RT-PCR) Negative (Negative) Discharge Plan Discharge Clinical Impression: Acute exacerbation of chronic obstructive pulmonary disease Patient Disposition: Home Condition: Stable Instructions: Antibiotic Form, COPD (Chronic Obstructive Pulmonary Disease) (ED) Patient Language: Cameroonian Prescriptions: New doxycycline hyclate 100 mg tablet 100 mg PO BID Qty: 14 0RF prednisone 20 mg tablet 40 mg PO DAILY 5 Days Qty: 10 0RF benzonatate 200 mg capsule 200 mg PO TID PRN (Reason: cough) Qty: 21 0RF No Action All Day Allergy (cetirizine) 10 mg capsule 10 mg PO DAILY PRN famotidine 40 mg tablet 40 mg PO DAILY quetiapine 150 mg tablet 150 mg PO QHS quetiapine 100 mg tablet 100 mg PO QHS Patient Comments: as needed metoprolol succinate 25 mg tablet extended release 24 hr 25 mg PO BID gabapentin 300 mg capsule 300 mg PO BID Invega Trinza 273 mg/0.88 mL syringe 273 mg IM [id number] naproxen 500 mg tablet 500 mg PO BID atorvastatin 20 mg tablet 20 mg PO DAILY nicotine 14 mg/24 hr patch 24 hour 1 patch topical DAILY budesonide-formoterol [Symbicort] 160-4.5 mcg/actuation HFA aerosol inhaler 2 puff inhalation Q12H Qty: 10.2 5RF Rx Instructions: Rinse and spit, use with spacer Spiriva Respimat 2.5 mcg/actuation mist 2 puff inhalation QAM Qty: 4 5RF albuterol sulfate 90 mcg/actuation HFA aerosol inhaler See Rx Instructions .ROUTE .COMPLEX Qty: 8.5 3RF Dose Instruction: INHALE 1 PUFF BY MOUTH EVERY 4 HOURS NEEDED FOR FOR SHORTNESS OF BREATH OR WHEEZING Rx Instructions: INHALE 1 PUFF BY MOUTH EVERY 4 HOURS NEEDED FOR FOR SHORTNESS OF BREATH OR WHEEZING Follow-up/Referrals: Guy Ortiz MD [Primary Care Provider] - Time of Disposition: 01:38
== END 2024-07-17 02:51 | disposition home or self-care (01) ==
PROVIDERS: Emergency Provider Emergency Medicine; PCP Internal Medicine
DX: J44.1 Chronic obstructive pulmonary disease with (acute) exacerbation (principal); Z20.822 Contact with and (suspected) exposure to COVID-19; I10 Essential (primary) hypertension; M19.90 Unspecified osteoarthritis, unspecified site; F31.9 Bipolar disorder, unspecified; Z79.899 Other long term (current) drug therapy; R00.0 Tachycardia, unspecified; R94.31 Abnormal electrocardiogram [ECG] [EKG]
CPT/HCPCS: 36415; 71045; 80053; 81003; 83605; 83735; 83880; 84145; 84484; 85025; 87637; 93005; 94640; 99284

== ENCOUNTER 2024-09-28 16:32 | Outpatient (CLI) | payer OTHER, SELFPAY ==
--- NOTE | ~2024-09-28 | CT_ITS ---
CT Scan of the Chest without Contrast: Clinical Indication: Pulmonary nodule Technique: Contiguous sections were acquired throughout the chest without intravenous contrast. Dose reduction technique was used on this scan by utilizing automated exposure control and iterative recon struction technique. The dose-length product (DLP) was 58.67 mGy-cm. Findings: There is no evidence of any significant mediastinal, hilar or axillary lymphadenopathy. The mediastin al soft tissues appear normal. Minimal pericardial fluid present. There is no pleural effusion. There is moderate to advanced emphysema. There is chronic scarring or postinflammatory change in the peripheral right upper lobe. Images through the upper abdomen reveal no abnormalities. Impression: Chronic scarring or postinflammatory change peripheral right upper lobe. Moderate to advanced emphysema. Reviewed, dictated and finalized at [facility]. Impression: Chronic scarring or postinflammatory change peripheral right upper lobe. Moderate to advanced emphysema.
== END 2024-09-28 16:33 | disposition home or self-care (01) ==
PROVIDERS: PCP Internal Medicine; Visit Provider Nurse Practitioner Family
DX: R91.1 Solitary pulmonary nodule (principal); J43.9 Emphysema, unspecified; R91.8 Other nonspecific abnormal finding of lung field
CPT/HCPCS: 71250